=== PATIENT | female | born 1935 | race Caucasian/White ===

== ENCOUNTER 2019-10-28 09:41 | Day surgery (SDC) | payer MEDICARE, BC ==
[~2019-10-28 09:41] MED LIST: ASPI325 PO; CARV3.125 PO; CLOP75 PO; FAMO20 PO; FURO40 PO; LEVSOD50 PO; LISI5 PO; POTCHL10ER PO; ROSU10TA PO
== END 2019-10-28 17:14 | disposition home or self-care (01) ==
LOC: ATC 09:41
DX: M31.6 Other giant cell arteritis (principal); I11.9 Hypertensive heart disease without heart failure; G25.2 Other specified forms of tremor; M10.9 Gout, unspecified; E78.49 Other hyperlipidemia; E03.8 Other specified hypothyroidism; M47.22 Other spondylosis with radiculopathy, cervical region; G44.229 Chronic tension-type headache, not intractable; I25.10 Atherosclerotic heart disease of native coronary artery without angina pectoris; Z87.891 Personal history of nicotine dependence; Z79.899 Other long term (current) drug therapy; Z79.82 Long term (current) use of aspirin
CPT/HCPCS: J2930

== ENCOUNTER 2019-10-30 00:07 | Day surgery (SDC) | payer MEDICARE, BC | END 2019-10-30 14:50 | disposition home or self-care (01) | LOC: ATC 00:07 | DX: M31.6 Other giant cell arteritis (principal); I10 Essential (primary) hypertension; E78.5 Hyperlipidemia, unspecified; E03.9 Hypothyroidism, unspecified; I25.10 Atherosclerotic heart disease of native coronary artery without angina pectoris; M10.9 Gout, unspecified; Z86.73 Personal history of transient ischemic attack (TIA), and cerebral infarction without residual deficits; Z87.891 Personal history of nicotine dependence; Z79.82 Long term (current) use of aspirin; Z79.899 Other long term (current) drug therapy | CPT/HCPCS: 96365; J2930 ==

== ENCOUNTER 2020-02-27 12:05 | Emergency (ER) | payer MEDICARE, BC ==
[~2020-02-27] VITALS: Ht 160 cm; Wt 68.0 kg
[~2020-02-27 12:05] MED LIST changes: -ELIQUIS5 MG PO; -Prednisone20 MG PO
[2020-02-27] MEDS ORDERED: ELIQUIS5 MG PO (12:34)
[2020-02-27] MEDS ORDERED: Prednisone20 MG PO (12:35)
[2020-02-27 12:44] LABS: Hematocrit 32.8 % (33.0-51.0); Hemoglobin 10.6 g/dL (11.5-16.0); Mean Corpuscular HGB 30.4 pg (26.0-34.0); Mean Corpuscular HGB Conc 32.3 g/dL (31.5-36.5); Mean Corpuscular Volume 94 fL (80-100); Mean Platelet Volume 8.9 fL (9.1-12.4); NRBC ABSOLUTE 0.05 K/mm3 (0.00-0.02); NRBC Auto 0.6 /100 WBC (0.0-0.2); Platelet Count 277 K/mm3 (150-400); RDW Coefficient Variation 15.7 % (11.7-14.2); RDW Standard Deviation 54.8 fL (35.1-46.3); Red Blood Cell Count 3.49 M/mm3 (3.80-5.20); White Blood Cell Count 7.83 K/mm3 (4.00-11.30)
[2020-02-27 13:00] LABS: Albumin, Blood 3.3 g/dL (3.4-5.0); Albumin/Globulin Ratio 1.1 (0.8-1.8); Bilirubin, Total 0.8 mg/dL (0.1-1.0); Bun/Creatinine Ratio 16.8 (12.0-20.0); Calcium, Blood 8.3 mg/dL (8.5-10.1); Creatinine, Blood 1.97 mg/dL (0.40-1.00); Globulin, Blood 3.1 g/dL (2.2-4.0); Potassium, Blood 3.4 mmol/L (3.5-5.5); Total Protein, Blood 6.4 g/dL (6.4-8.2); Troponin I 0.045 ng/mL (0.000-0.040)
[2020-02-27 13:08] LABS: BAND PERCENT MAN 18 % (0-8); BASOPHILS PERCENT MAN 0 % (0-2); EOSINOPHILS ABSOLUTE MAN 0.07 K/mm3 (0.00-0.68); EOSINOPHILS PERCENT MAN 1 % (0-6); LYMPHOCYTES % ATYPICAL MANUAL 1 % (0-0); LYMPHOCYTES ABSOLUTE MAN 0.46 K/mm3 (0.84-5.20); LYMPHOCYTES PERCENT MAN 5 % (21-46); MONOCYTES ABSOLUTE MAN 0.31 K/mm3 (0.16-1.47); MONOCYTES PERCENT MAN 4 % (4-13); NEUTROPHILS ABSOLUTE MAN 6.96 K/mm3 (1.96-9.15); SEG NEUTROPHILS PERCENT MAN 71 % (41-73); TOTAL CELLS COUNTED 100
== END 2020-02-27 16:01 | disposition home or self-care (01) ==
LOC: ER 12:05
PROVIDERS: Emergency Medicine
DX: N17.9 Acute kidney failure, unspecified (principal); E86.0 Dehydration; R19.7 Diarrhea, unspecified; I12.9 Hypertensive chronic kidney disease with stage 1 through stage 4 chronic kidney disease, or unspecified chronic kidney disease; N18.9 Chronic kidney disease, unspecified; I25.2 Old myocardial infarction; I25.10 Atherosclerotic heart disease of native coronary artery without angina pectoris; I48.91 Unspecified atrial fibrillation; E03.9 Hypothyroidism, unspecified; E78.5 Hyperlipidemia, unspecified; Z86.73 Personal history of transient ischemic attack (TIA), and cerebral infarction without residual deficits; Z86.718 Personal history of other venous thrombosis and embolism; Z88.5 Allergy status to narcotic agent; Z79.899 Other long term (current) drug therapy; Z79.01 Long term (current) use of anticoagulants; Z79.52 Long term (current) use of systemic steroids
CPT/HCPCS: 36415; 80053; 84484; 85025; 93005; 93010; 99285-25; J7030

== ENCOUNTER → 2020-02-27 | Outpatient (CLI) | payer MEDICARE, BC ==
[~2020-02-27] MED LIST changes: +Aspir 8181 MG PO; +ELIQUIS5 MG PO; +EUTHYROX50 MCG PO; -LEVSOD50 PO; +MULTI VITAMIN1 EACH PO; +PANT40 PO; +PRED20 PO; +Prednisone20 MG PO
[2020-02-27 16:41] LABS: Adenovirus F 40/41 Not Detected (NOT DETECT); Astrovirus Not Detected (NOT DETECT); Campylobacter Sp Not Detected (NOT DETECT); Cryptosporidium Not Detected (NOT DETECT); Cyclospora Cayetanensis Not Detected (NOT DETECT); E. Coli O157 Not Detected (NOT DETECT); Entamoeba Histolytica Not Detected (NOT DETECT); Enteroaggregative E. coli-EAEC Not Detected (NOT DETECT); Enteropathogenic E. coli-EPEC Not Detected (NOT DETECT); Enterotoxigenic E. coli-ETEC Not Detected (NOT DETECT); Giardia Lamblia Not Detected (NOT DETECT); Norovirus GI/GII Not Detected (NOT DETECT); Plesiomonas Shigelloides Not Detected (NOT DETECT); Rotavirus A Not Detected (NOT DETECT); Salmonella Sp Not Detected (NOT DETECT); Sapovirus Not Detected (NOT DETECT); Shiga Toxin-prod E. coli-STEC Not Detected (NOT DETECT); Shigella/Enteroin E. coli-EIEC Not Detected (NOT DETECT); Vibrio Cholerae Not Detected (NOT DETECT); Vibrio Sp Not Detected (NOT DETECT); Yersinia Enterocolitica Not Detected (NOT DETECT)
== END | disposition home or self-care (01) ==
LOC: LAB SHORT 09:58 → LAB 09:58 → LAB FUT 02-16 16:25
PROVIDERS: Family Medicine
DX: A09 Infectious gastroenteritis and colitis, unspecified (principal)
CPT/HCPCS: 0097U

== ENCOUNTER 2020-03-05 01:13 | Inpatient (IN) | payer MEDICARE, BC, OTHER ==
[~2020-03-05] VITALS: Ht 160 cm; Wt 64.5 kg
[~2020-03-05 01:13] MED LIST changes: +ELIQUIS5 MG PO; +Prednisone20 MG PO
[2020-03-05 02:05] LABS: Hematocrit 28.9 % (33.0-51.0); Hemoglobin 9.3 g/dL (11.5-16.0); Mean Corpuscular HGB Conc 32.2 g/dL (31.5-36.5); Mean Corpuscular Volume 93 fL (80-100); Mean Platelet Volume 9.1 fL (9.1-12.4); Platelet Count 203 K/mm3 (150-400); RDW Coefficient Variation 15.6 % (11.7-14.2); RDW Standard Deviation 53.3 fL (35.1-46.3)
[2020-03-05 02:23] LABS: Albumin, Blood 2.6 g/dL (3.4-5.0); Bilirubin, Total 0.7 mg/dL (0.1-1.0); Bun/Creatinine Ratio 22.8 (12.0-20.0); Calcium, Blood 7.8 mg/dL (8.5-10.1); Creatinine, Blood 1.67 mg/dL (0.40-1.00); Globulin, Blood 2.7 g/dL (2.2-4.0); Potassium, Blood 4.1 mmol/L (3.5-5.5); Total Protein, Blood 5.3 g/dL (6.4-8.2); Troponin I 0.026 ng/mL (0.000-0.040)
[2020-03-05 02:42] LABS: BAND PERCENT MAN 1 % (0-8); BASOPHILS PERCENT MAN 0 % (0-2); EOSINOPHILS PERCENT MAN 0 % (0-6); LYMPHOCYTES ABSOLUTE MAN 0.76 K/mm3 (0.84-5.20); LYMPHOCYTES PERCENT MAN 20 % (21-46); MONOCYTES ABSOLUTE MAN 0.03 K/mm3 (0.16-1.47); MONOCYTES PERCENT MAN 1 % (4-13); SEG NEUTROPHILS PERCENT MAN 78 % (41-73); TOTAL CELLS COUNTED 100
[2020-03-05 07:25] LABS: Hematocrit 31.7 % (33.0-51.0); Hemoglobin 10.1 g/dL (11.5-16.0); Mean Corpuscular HGB 30.1 pg (26.0-34.0); Mean Corpuscular HGB Conc 31.9 g/dL (31.5-36.5); Mean Corpuscular Volume 94 fL (80-100); Mean Platelet Volume 9.5 fL (9.1-12.4); Platelet Count 203 K/mm3 (150-400); RDW Coefficient Variation 15.7 % (11.7-14.2); RDW Standard Deviation 54.3 fL (35.1-46.3); Red Blood Cell Count 3.36 M/mm3 (3.80-5.20); White Blood Cell Count 4.34 K/mm3 (4.00-11.30)
[2020-03-05 07:49] LABS: Albumin, Blood 2.7 g/dL (3.4-5.0); Albumin/Globulin Ratio 0.9 (0.8-1.8); Bilirubin, Total 0.9 mg/dL (0.1-1.0); Calcium, Blood 8.2 mg/dL (8.5-10.1); Creatinine, Blood 1.44 mg/dL (0.40-1.00); Globulin, Blood 2.9 g/dL (2.2-4.0); Total Protein, Blood 5.6 g/dL (6.4-8.2)
[2020-03-05 08:02] LABS: BAND PERCENT MAN 2 % (0-8); BASOPHILS PERCENT MAN 0 % (0-2); EOSINOPHILS ABSOLUTE MAN 0.04 K/mm3 (0.00-0.68); EOSINOPHILS PERCENT MAN 1 % (0-6); LYMPHOCYTES ABSOLUTE MAN 0.39 K/mm3 (0.84-5.20); LYMPHOCYTES PERCENT MAN 9 % (21-46); MONOCYTES ABSOLUTE MAN 0.26 K/mm3 (0.16-1.47); MONOCYTES PERCENT MAN 6 % (4-13); NEUTROPHILS ABSOLUTE MAN 3.64 K/mm3 (1.96-9.15); SEG NEUTROPHILS PERCENT MAN 82 % (41-73); TOTAL CELLS COUNTED 100
--- NOTE | 2020-03-05 17:57 | NUR ---
SHIFT SUMMARY PATIENT MEDIATED X1 FOR NAUSEA AND X1 FOR PAIN THIS MORNING. PATIENT REPORTS ABDOMINAL PAIN HAS BEEN FADING ALL DAY. CONSULT WITH DR. ADAN, PATIENT WILL HAVE HYDASCAN IN AM TO DETERMINE IF GALLBLADER REMOVAL IS NECCESSARY. NPO AT MIDNIGHT AND NO PAIN MEDICATION AFTER MIDNIGHT. HOLDING ELEQUIS AT THIS TIME. PATIENT UP SBA TO BR. DAUGHTER AT BEDSIDE. CALL LIGHT IN REACH.
--- NOTE | 2020-03-06 04:14 | NUR ---
SHIFT SUMMARY ASSUMED CARE OF PT AT 1900. PT IS A/OX4, DENIES N/T IN EXTERMIES. HEART SOUNDS REUGLAR, TELE SHOWS SINUS W/ PAC @ 65, DENIES CP. LUNG SOUNDS CLEAR, DENIES SOB. PT IS 1P SBA TO BATHROOM DUE TO CORDS. URINE CLEAR NAD YELLOW. PT HAS NO COMPLAINTS OF PAIN, NEASEA OR VOMITING. PT HAS BEEN NPO SINCE MIDNIGHT AND HAS NO HAD ANY PAIN MEDICATIONS. NO ACUTE EVENTS DURING THE NIGHT. PT SLEPT T/O THE NIGHT. CALL LIGHT IN REACH, BED IN LOWEST POSTION, WILL CONTINUE TO MONITOR UNTIL DAYSHIFT NURSE ARRIVES.
[2020-03-06 05:27] LABS: Hematocrit 26.5 % (33.0-51.0); Hemoglobin 8.6 g/dL (11.5-16.0); Mean Corpuscular HGB 30.3 pg (26.0-34.0); Mean Corpuscular HGB Conc 32.5 g/dL (31.5-36.5); Mean Corpuscular Volume 93 fL (80-100); Mean Platelet Volume 9.4 fL (9.1-12.4); Platelet Count 179 K/mm3 (150-400); RDW Coefficient Variation 15.9 % (11.7-14.2); RDW Standard Deviation 54.5 fL (35.1-46.3); Red Blood Cell Count 2.84 M/mm3 (3.80-5.20); White Blood Cell Count 3.05 K/mm3 (4.00-11.30)
[2020-03-06 05:49] LABS: BAND PERCENT MAN 8 % (0-8); BASOPHILS PERCENT MAN 0 % (0-2); EOSINOPHILS PERCENT MAN 0 % (0-6); LYMPHOCYTES % ATYPICAL MANUAL 1 % (0-0); LYMPHOCYTES ABSOLUTE MAN 0.42 K/mm3 (0.84-5.20); LYMPHOCYTES PERCENT MAN 13 % (21-46); MONOCYTES ABSOLUTE MAN 0.15 K/mm3 (0.16-1.47); MONOCYTES PERCENT MAN 5 % (4-13); NEUTROPHILS ABSOLUTE MAN 2.47 K/mm3 (1.96-9.15); SEG NEUTROPHILS PERCENT MAN 73 % (41-73); TOTAL CELLS COUNTED 100
[2020-03-06 06:00] LABS: Albumin, Blood 2.2 g/dL (3.4-5.0); Albumin/Globulin Ratio 0.8 (0.8-1.8); Bun/Creatinine Ratio 18.4 (12.0-20.0); Calcium, Blood 7.5 mg/dL (8.5-10.1); Creatinine, Blood 1.41 mg/dL (0.40-1.00); Globulin, Blood 2.6 g/dL (2.2-4.0); Potassium, Blood 3.7 mmol/L (3.5-5.5); Total Protein, Blood 4.8 g/dL (6.4-8.2)
--- NOTE | 2020-03-06 15:43 | NUR ---
SHIFT SUMMARY PT IS A/O X 4. SHE HAS NO C/O PAIN AND IS A SBA WITH A FWW TO THE TOILET. SHE WENT FOR HER HIDASCAN THIS MORNING AND IS AWAITING THE RESULTS. SHE WAS ADVANCED TO A CLEAR LIQUID DIET AND IS TOLERATING IT WELL. HER SON HAS BEEN AT THE BEDSIDE ALL DAY AND IS VERY INVOLVED IN HER CARE. THE PT IS ABLE TO MAKE HER NEEDS KNOWN AND CALLS FOR HELP WHEN NEEDED. SHE HAS HER CALL LIGHT IN REACH.
--- NOTE | 2020-03-07 03:59 | NUR ---
PARTS CHASER SUMMARY PT A/O X4. DENIES PAIN, NAUSEA, DIZZINESS. VSS. CALLS APPROPRIATELY. NO ACUTE CHANGES.
--- NOTE | 2020-03-07 08:34 | NUR ---
03/07/20 0834 Zach Benson PATIENT ON SCHEDULED ANTIBIOTICS
--- NOTE | 2020-03-08 04:55 | NUR ---
SERGING MACHINE OPERATOR SUMMARY PT A/O X4. SLEPT GREAT TONIGHT. DENIES PAIN, NAUSEA. PT SAYS DIZZINESS HAS IMPROVED. VSS. STERI STRIPS ON SURGICAL SITE ON ABD IS CLEAN AND INTACT. NO ACUTE CHANGES. CALL APPROPRIATELY.
[2020-03-08 05:13] LABS: Hematocrit 24.8 % (33.0-51.0); Hemoglobin 7.9 g/dL (11.5-16.0); Mean Corpuscular HGB Conc 31.9 g/dL (31.5-36.5); Mean Corpuscular Volume 94 fL (80-100); Mean Platelet Volume 9.6 fL (9.1-12.4); Platelet Count 173 K/mm3 (150-400); RDW Coefficient Variation 15.7 % (11.7-14.2); RDW Standard Deviation 54.2 fL (35.1-46.3); Red Blood Cell Count 2.63 M/mm3 (3.80-5.20)
[2020-03-08 05:22] LABS: BASOPHILS PERCENT AUTO 0 % (0-2); EOSINOPHILS ABSOLUTE AUTO 0.01 K/mm3 (0.00-0.68); EOSINOPHILS PERCENT AUTO 2 % (0-6); IMMATURE GRAN ABSOLUTE AUTO 0.01 K/mm3 (0.00-0.10); IMMATURE GRAN PERCENT AUTO 2 % (0-1); LYMPHOCYTES ABSOLUTE AUTO 0.28 K/mm3 (0.84-5.20); LYMPHOCYTES PERCENT AUTO 44 % (21-46); MONOCYTES ABSOLUTE AUTO 0.05 K/mm3 (0.16-1.47); MONOCYTES PERCENT AUTO 8 % (4-13); NEUTROPHILS ABSOLUTE AUTO 0.28 K/mm3 (1.96-9.15); NEUTROPHILS PERCENT AUTO 45 % (41-73); White Blood Cell Count 0.63 K/mm3 (4.00-11.30)
[2020-03-08 05:52] LABS: Anion Gap 8 mmol/L (6-16); Blood Urea Nitrogen 16 mg/dL (8-24); Bun/Creatinine Ratio 15.4 (12.0-20.0); CO2, Blood 23 mmol/L (21-32); Calcium, Blood 7.6 mg/dL (8.5-10.1); Chloride, Blood 109 mmol/L (98-108); Creatinine, Blood 1.04 mg/dL (0.40-1.00); Glomerular Filtration Rate 54 (60-); Glucose, Blood 113 mg/dL (70-99); Phosphorus, Blood 3.5 mg/dL (2.5-4.9); Potassium, Blood 3.4 mmol/L (3.5-5.5); Sodium, Blood 140 mmol/L (136-145)
[2020-03-08 08:12] LABS: Hematocrit 24.7 % (33.0-51.0); Hemoglobin 7.9 g/dL (11.5-16.0); Mean Corpuscular HGB 29.9 pg (26.0-34.0); Mean Corpuscular Volume 94 fL (80-100); Mean Platelet Volume 9.4 fL (9.1-12.4); Platelet Count 174 K/mm3 (150-400); RDW Coefficient Variation 15.7 % (11.7-14.2); RDW Standard Deviation 53.8 fL (35.1-46.3); Red Blood Cell Count 2.64 M/mm3 (3.80-5.20)
[2020-03-08 08:15] LABS: White Blood Cell Count 0.64 K/mm3 (4.00-11.30)
[2020-03-08 08:43] LABS: BASOPHILS PERCENT MAN 0 % (0-2); EOSINOPHILS ABSOLUTE MAN 0.01 K/mm3 (0.00-0.68); EOSINOPHILS PERCENT MAN 2 % (0-6); LYMPHOCYTES ABSOLUTE MAN 0.33 K/mm3 (0.84-5.20); LYMPHOCYTES PERCENT MAN 52 % (21-46); MONOCYTES ABSOLUTE MAN 0.02 K/mm3 (0.16-1.47); MONOCYTES PERCENT MAN 4 % (4-13); NEUTROPHILS ABSOLUTE MAN 0.26 K/mm3 (1.96-9.15); SEG NEUTROPHILS PERCENT MAN 42 % (41-73); TOTAL CELLS COUNTED 50
[2020-03-08 11:12] LABS: Percent Saturation 5.6 % (15.0-50.0)
--- NOTE | 2020-03-08 15:52 | NUR ---
SUMMARY: NO ACUTE CHANGE TODAY. VSS, A/O. SUGICAL SITE WNL. PT REPORTS MINIMAL PAIN, MANAGED WITH TYLENOL. PT WBC'S CONTINUE TO BE LOW, MD AWARE. PT IN NEUTROPENIC PRECAUTIONS. PLAN IS TO CONSULT HEMATOLOGY, AND PT TO SEE REGULATORY ANALYST TOMORROW. WILL CTM AND REPORT TO NOC RN
[2020-03-08 16:02] LABS: Hematocrit 27.8 % (33.0-51.0); Hemoglobin 8.9 g/dL (11.5-16.0); Mean Corpuscular Volume 94 fL (80-100); Mean Platelet Volume 9.7 fL (9.1-12.4); Platelet Count 227 K/mm3 (150-400); RDW Coefficient Variation 15.7 % (11.7-14.2); RDW Standard Deviation 54.2 fL (35.1-46.3); Red Blood Cell Count 2.97 M/mm3 (3.80-5.20)
[2020-03-08 16:05] LABS: BASOPHILS PERCENT AUTO 0 % (0-2); EOSINOPHILS PERCENT AUTO 0 % (0-6); IMMATURE GRAN PERCENT AUTO 0 % (0-1); LYMPHOCYTES ABSOLUTE AUTO 0.17 K/mm3 (0.84-5.20); LYMPHOCYTES PERCENT AUTO 40 % (21-46); MONOCYTES ABSOLUTE AUTO 0.05 K/mm3 (0.16-1.47); MONOCYTES PERCENT AUTO 12 % (4-13); NEUTROPHILS ABSOLUTE AUTO 0.21 K/mm3 (1.96-9.15); NEUTROPHILS PERCENT AUTO 49 % (41-73)
[2020-03-08 16:06] LABS: White Blood Cell Count 0.43 K/mm3 (4.00-11.30)
--- NOTE | 2020-03-08 16:37 | NUR ---
PT REPORTS MORE SWELLING IN LLE AT ANKLE AFTER SHOWER. UPON ASSESSMENT, CAP REFILL WNL, PEDAL PULSE +2 LEG IS WARM TO THE TOUCH AND PT DENIES N/T. DR. YBARRA NOTIFIED OF PT CONCERN OF SWELLING. SEE NEW ORDER, WILL CTM.
--- NOTE | 2020-03-09 03:19 | NUR ---
PT A/O X4. SHE IS LETHARGIC. PALE IN APPERANCE. FEVER OF 101.O. SHE'S HAD CHILLS OVER NIGHT. FEELING COLD AND HOT. ROOM TEMP LOWERED. TYLENOL GIVEN. ON TELE BEEN RANGING FROM SR TO SINUS TACH. WILL CONTINUE TO MONITOR.
--- NOTE | 2020-03-09 05:09 | NUR ---
night time nanny summary at 0415 pt had 7 beats of v-tach. i checked on pt. pt states she is feeling better after tylenol was given. temperature came down to normal. at 445 i got another call from tele as pt had runs of v-tach with here and there after the episode at 0415. vitals taken. bp appears softer than normal. she states she is no longer having chills. hospitalist jazmyne notified. order for magnesium lab to be drawn this morning which is already included in today's CMP. will continue to monitor.
[2020-03-09 05:31] LABS: Hematocrit 28.1 % (33.0-51.0); Hemoglobin 8.9 g/dL (11.5-16.0); Mean Corpuscular HGB 29.8 pg (26.0-34.0); Mean Corpuscular HGB Conc 31.7 g/dL (31.5-36.5); Mean Corpuscular Volume 94 fL (80-100); Platelet Count 196 K/mm3 (150-400); RDW Coefficient Variation 15.7 % (11.7-14.2); RDW Standard Deviation 54.1 fL (35.1-46.3); Red Blood Cell Count 2.99 M/mm3 (3.80-5.20)
[2020-03-09 05:35] LABS: White Blood Cell Count 0.38 K/mm3 (4.00-11.30)
[2020-03-09 06:00] LABS: Albumin, Blood 2.2 g/dL (3.4-5.0); Albumin/Globulin Ratio 0.7 (0.8-1.8); BAND PERCENT MAN 2 % (0-8); BASOPHILS PERCENT MAN 0 % (0-2); Bilirubin, Total 0.6 mg/dL (0.1-1.0); Bun/Creatinine Ratio 14.3 (12.0-20.0); Calcium, Blood 8.1 mg/dL (8.5-10.1); Creatinine, Blood 1.19 mg/dL (0.40-1.00); EOSINOPHILS PERCENT MAN 2 % (0-6); Globulin, Blood 3.1 g/dL (2.2-4.0); LYMPHOCYTES PERCENT MAN 54 % (21-46); MONOCYTES ABSOLUTE MAN 0.09 K/mm3 (0.16-1.47); MONOCYTES PERCENT MAN 26 % (4-13); NEUTROPHILS ABSOLUTE MAN 0.06 K/mm3 (1.96-9.15); Potassium, Blood 3.4 mmol/L (3.5-5.5); SEG NEUTROPHILS PERCENT MAN 16 % (41-73); TOTAL CELLS COUNTED 50; Total Protein, Blood 5.3 g/dL (6.4-8.2)
--- NOTE | 2020-03-09 08:45 | NUR ---
PT TRANSFERRED TO ROOM ICU 1 WITH RN PRESENT TO ACCEPT PT.
--- NOTE | 2020-03-09 10:05 | NUR ---
PT ADMITTED TO ICU-1 ON PCU STAUTS VIA BED. PT IS A/O, WITH NOTED MILD EXERTIONAL SOB, SATS 97, AND ON RA. ABD. LAP. JOHN SITES ARE D/I WITH GOOD BOWEL TONES. NO N/V. PT DENIE THE NEED TO VOID. ON IV SITE IN RAC AND WILL ASSESS. VS NOTED AND WILL GIVE IV LOPRESSOR
[2020-03-09 14:50] LABS: Performing Lab SYMBIODX; Test Name FLOW BLOOD
--- NOTE | 2020-03-09 14:56 | NUR ---
PT USING I.S. TO ABOUT 750 ML LEVEL. VS IMPROVING NOTED. SON IS IN ROOM. PT CURRENTLY SLEEPING WITH HR 70'S.
--- NOTE | 2020-03-09 17:17 | NUR ---
PT AWAKENED FROM LONG NAP AND UP TO BSC TO VOID. PT URINE IS SIMRAN SL CLOUDY. VS NOTED. SR CONTINUES W/O ECTOPY. NS REMAINS AT 100 ML MAINTANCE RATE WITH IVPB ABX. PT CONT. TO USE I.S. AT 500-750 ML. PT REMAINS A/O.
--- NOTE | 2020-03-09 19:52 | NUR ---
ASSUMPTION OF CARE PT AWAKE IN BED, ORIENTED TO SELF, EVENT, DATE, LOCATION AND FOLLOWING DIRECTIONS, DENIES PAIN/DISCOMFORT. O2 SATURATIONS> 95% ON RA, MONITOR SHOWS SINUS RHYTHM WITH HR 60'S, BP SOFT BUT MAPS> 65, NS INF @ 100ml/hr. MILD DISCOLORATION AND PEELING OF SKIN TO LLE, PT REPORTS HX OF DVT, WAS TREATED AND SITE IS MUCH IMPROVED. BT HYPERACTIVE, MILD TENDERNESS WITH PALPATION, REPORT FROM PREVIOUS RN OF BM TODAY, STERI-STRIPS NOTED TO SURGICAL SITE, C/D/I. PT DENIES ANY ISSUES AT THIS TIME. CALL LIGHT WITHIN REACH, PT INSTRUCTED ON USE.
--- NOTE | 2020-03-10 00:05 | NUR ---
BEDSIDE REPORT GIVEN TO JORGE RN, NO ACUTE CHANGES, PT AROUSES TO VERBAL STIMULI, DENIES ANY NEEDS AT THIS TIME. CALL LIGHT WITHIN REACH.
--- NOTE | 2020-03-10 00:18 | NUR ---
ASSUMED CARE FROM BHAKTI QUINTANA
[2020-03-10 03:47] LABS: Hematocrit 25.6 % (33.0-51.0); Hemoglobin 7.9 g/dL (11.5-16.0); Mean Corpuscular HGB 29.4 pg (26.0-34.0); Mean Corpuscular HGB Conc 30.9 g/dL (31.5-36.5); Mean Corpuscular Volume 95 fL (80-100); Mean Platelet Volume 9.8 fL (9.1-12.4); Platelet Count 163 K/mm3 (150-400); RDW Standard Deviation 55.8 fL (35.1-46.3); Red Blood Cell Count 2.69 M/mm3 (3.80-5.20)
[2020-03-10 03:48] LABS: BASOPHILS PERCENT AUTO 0 % (0-2); EOSINOPHILS ABSOLUTE AUTO 0.02 K/mm3 (0.00-0.68); EOSINOPHILS PERCENT AUTO 4 % (0-6); IMMATURE GRAN ABSOLUTE AUTO 0.02 K/mm3 (0.00-0.10); IMMATURE GRAN PERCENT AUTO 4 % (0-1); LYMPHOCYTES ABSOLUTE AUTO 0.34 K/mm3 (0.84-5.20); LYMPHOCYTES PERCENT AUTO 67 % (21-46); MONOCYTES PERCENT AUTO 20 % (4-13); NEUTROPHILS ABSOLUTE AUTO 0.03 K/mm3 (1.96-9.15); NEUTROPHILS PERCENT AUTO 6 % (41-73)
[2020-03-10 03:50] LABS: White Blood Cell Count 0.51 K/mm3 (4.00-11.30)
[2020-03-10 04:09] LABS: Albumin, Blood 1.7 g/dL (3.4-5.0); Albumin/Globulin Ratio 0.6 (0.8-1.8); Bilirubin, Total 0.5 mg/dL (0.1-1.0); Bun/Creatinine Ratio 17.3 (12.0-20.0); Calcium, Blood 7.6 mg/dL (8.5-10.1); Creatinine, Blood 1.27 mg/dL (0.40-1.00); Globulin, Blood 2.8 g/dL (2.2-4.0); Magnesium, Blood 2.4 mg/dL (1.6-2.4); Potassium, Blood 4.2 mmol/L (3.5-5.5); Total Protein, Blood 4.5 g/dL (6.4-8.2)
--- NOTE | 2020-03-10 06:31 | NUR ---
SHIFT SUMMARY: NO ACUTE CHANGES SINCE I ASSUMED CARE AROUND MIDNIGHT. VSS. PT DID NOT HAVE ANY COMPLAINTS FOR ME. SHE IS A STANDBY ASSIST. COMPLAINS OF SOME WEAKNESS. PIV IN LAC.
--- NOTE | 2020-03-10 08:00 | NUR ---
INITIAL ASSESSMENT PATIENT ALERT AND ORIENTED X 4, AFEBRILE. PATIENT DENIES PAIN AT THIS TIME. PATIENT WEAK. 1 PERSON ASSIST WITH FWW. PATIENT SATTING 90% AND GREATER ON RA. LUNGS CLEAR IN UPPER LOBES, DIMINISHED IN LOWER LOBES. PATIENT STATES SHE OCCASIONALLY COUGHS AT HOME AND HAS THICK SPUTUM BUT THAT SHE DOESN'T KNOW WHAT COLOR BECAUSE SHE DOESN'T LOOK. SON HELPING PATIENT WITH INCENTIVE SPIROMETER. PATIENT IN SB, HR IN THE 50S. BP STABLE. 1+ EDEMA NOTED IN BLES. ABDOMEN MILDLY DISTENDED, SOFT, WITH HYPERACTIVE BS NOTED. PATIENT HAS SURGICAL INCISIONS TO ABDOMEN. WNL. PATIENT USING BSC WITH ASSISTANCE. SCATTERED BRUISING NOTED. LLE PEELING/ DISCOLORED. SURGICAL INCISIONS TO ABDOMEN FROM JOHN. NS INFUSING AT 100 MLS/ HOUR. BED LOW, CALL LIGHT IN REACH. SON AT BEDSIDE. WILL CONTINUE TO MONITOR PATIENT FREQUENTLY THROUGHOUT SHIFT.
--- NOTE | 2020-03-10 12:12 | NUR ---
PATIENT RESTING QUIETLY IN BED. AFEBRILE. DENIES PAIN. PATIENT IN SB TO SR. HR MOSTLY IN THE 50S. HR UP TO 80S WITH ACTIVITY. BP STABLE. ZOSYN STARTED. SON IN ROOM. NO OTHER ACUTE CHANGES TO NOTE ON AT THIS TIME. WILL CONTINUE TO MONITOR.
[2020-03-10 16:40] LABS: Source, Urine Clean Catch
[2020-03-10 16:42] LABS: Appearance, Urine Hazy (Clear); Bilirubin, Urine Neg (Neg); Blood, Urine Neg (Neg); Color, Urine Yellow (P-Yellow); Glucose Qualitative, Urine Neg (Neg); Ketones, Urine 1+ (Neg); Leukocyte Esterase, Urine Neg (Neg); Nitrite, Urine Neg (Neg); Protein, Urine 2+ (Neg); Specific Gravity, Urine 1.015 (1.003-1.022); Urobilinogen, Urine NORM (Normal)
--- NOTE | 2020-03-10 16:51 | NUR ---
SHIFT SUMMARY PATIENT REMAINED ALERT AND ORIENTED, AFEBRILE. PATIENT HAD NO COMPLAINTS OF PAIN. PATIENT WEAK; 1 PERSON ASSIST WITH FWW. PHYSICAL THERAPY ORDERED TODAY. PATIENT REMAINED SATTING 90% AND GREATER ON RA. PATIENT REMAINED IN SB TO SR, HR 50S TO 80S. BP STABLE. GI AND WNL. NO CHANGE TO SKIN. PATIENT SHIFTING OWN HIPS IN BED AND SON IS ENCOURAGING/ ASSISTING. NS INFUSING AT 30 MLS/ HOUR. BED LOW, CALL LIGHT IN REACH. NO COMPLAINTS AT THIS TIME. PATIENT WILL BE TRANSFERRING TO MEDICAL FLOOR SHORTLY.
[2020-03-10 17:04] LABS: Uric Acid Crystals Mod /hpf
[2020-03-10 17:07] LABS: Bacteria Few /hpf; Calcium Oxalate Crystals Many /hpf; Red Blood Cells, Urine 0-2 /hpf (0-2); Squamous Epithelial Cells Few /hpf (Few); White Blood Cells, Urine 0-2 /hpf (0-5)
--- NOTE | 2020-03-10 17:10 | NUR ---
PATIENT BEING TRANSFERRED AT THIS TIME TO MEDICAL FLOOR, ROOM 306, BY CAREER SERVICES ASSISTANT. SON AT SIDE. ALL BELONGINGS TAKEN WITH PATIENT.
--- NOTE | 2020-03-10 17:32 | NUR ---
Shift Summary A/Ox4, pleasant and cooperative since arrival. Received report from Delmis RN-ICU. Patient arrived to unit via w/c and son (Rafat) at bedside. Transfer with 1P assist c FWW, RA, denies pain, nausea, diarrhea, sob. Weakness in BLE per patient state. NS @ 30mLs/hr. Oriented to call light, bed in lowest position, will continue to monitor.
--- NOTE | 2020-03-10 18:54 | NUR ---
TELEMETRY CALLED TO ASKED DR. YBARRA IF SHE WANTED TELEMETRY ORDER OVERNIGHT. RECEIVED TELEPHONE ORDER FOR TELEMETRY OVERNIGHT.
[2020-03-11 05:15] LABS: Hematocrit 25.1 % (33.0-51.0); Hemoglobin 7.7 g/dL (11.5-16.0); Mean Corpuscular HGB 29.5 pg (26.0-34.0); Mean Corpuscular HGB Conc 30.7 g/dL (31.5-36.5); Mean Corpuscular Volume 96 fL (80-100); Mean Platelet Volume 9.6 fL (9.1-12.4); Platelet Count 158 K/mm3 (150-400); RDW Coefficient Variation 16.2 % (11.7-14.2); RDW Standard Deviation 57.6 fL (35.1-46.3); Red Blood Cell Count 2.61 M/mm3 (3.80-5.20)
[2020-03-11 05:34] LABS: Albumin, Blood 1.8 g/dL (3.4-5.0); Anion Gap 7 mmol/L (6-16); Blood Urea Nitrogen 18 mg/dL (8-24); Bun/Creatinine Ratio 16.2 (12.0-20.0); CO2, Blood 21 mmol/L (21-32); Calcium, Blood 7.8 mg/dL (8.5-10.1); Chloride, Blood 114 mmol/L (98-108); Creatinine, Blood 1.11 mg/dL (0.40-1.00); Glomerular Filtration Rate 50 (60-); Glucose, Blood 75 mg/dL (70-99); Phosphorus, Blood 2.4 mg/dL (2.5-4.9); Potassium, Blood 4.1 mmol/L (3.5-5.5); Sodium, Blood 142 mmol/L (136-145)
--- NOTE | 2020-03-11 06:30 | NUR ---
SUMMARY: A/OX4, CALLS APPROPRIATELY AND SPECIFIES NEEDS. SHE'S DENIED PAIN, NAUSEA AND ALL OTHER COMPLAINTS. IV ABX RECIEVED FOR NEUTROPENIA. CRITICAL WBC'S PERSIST, NOW DOWN TO 0.40 FROM 0.51 W/NEUTROPENIC PRECAUTIONS IN PLACE. GRANIX COMMENCED BY DR. LEWIS. PT REMAINS ON TELEMETRY IN NSR AT 70'S-80'S BPM. PT HAS GENERAL ANASARCA AND DEPENDENT EDEMA THAT BECAME WORSE THIS SHIFT. SHE ALSO C/O SLIGHT DEVELOPMENT OF SOB W/VERY FINE CRACKLES TO BASES. ALERTED AND IVF STOPPED. KIDNEY FUNCTION NOTED TO BE IMPROVING PER AM LABS. SHE'S 1P ASSIST W/FWW TO TOILET TO VOID, NO BM THIS SHIFT. PT USING I/S AT BEDSIDE INSTRUCTED. VSS/AFEBRILE, NO ACUTE CHANGES. WCTM AND REPORT TO DAY RN.
[2020-03-11 06:34] LABS: BASOPHILS PERCENT MAN 0 % (0-2); EOSINOPHILS ABSOLUTE MAN 0.04 K/mm3 (0.00-0.68); EOSINOPHILS PERCENT MAN 12 % (0-6); LYMPHOCYTES ABSOLUTE MAN 0.27 K/mm3 (0.84-5.20); LYMPHOCYTES PERCENT MAN 68 % (21-46); MONOCYTES ABSOLUTE MAN 0.03 K/mm3 (0.16-1.47); MONOCYTES PERCENT MAN 8 % (4-13); NEUTROPHILS ABSOLUTE MAN 0.04 K/mm3 (1.96-9.15); SEG NEUTROPHILS PERCENT MAN 12 % (41-73); TOTAL CELLS COUNTED 25
[2020-03-11 11:45] LABS: International Normalized Ratio 1.07; Prothrombin Time Results 11.4 Sec (9.7-11.5)
--- NOTE | 2020-03-11 19:05 | NUR ---
SHIFT SUMMARY: NO ACUTE EVENTS THIS SHIFT. NO EVENTS ON TELEMETRY. LAP INCISIONS ON ABD CD&I, APPROX WITH STERI STRIPS. DENIES PAIN. UP TO BR WITH FWW AND SBA. AFEBRILE DURING THE DAY. GAVE HAND OUT ON BONE MARROW BIOPSY PLANNED FOR TOMORROW MORNING, DISCUSSED WITH PT AND HER DAUGHTER. WORKED WITH PHYS THERAPY.
--- NOTE | 2020-03-11 20:00 | NUR ---
SHIFT SUMMARY: NO ACUTE EVENTS. NO EVENTS ON TELEMETRY. COMPLETED PD AT ~ 1330 TODAY. TRANSFUSED ONE UNIT PRBC'S, TOLERATED WELL. C/O BACK PAIN; MEDICATED PER EMAR, DOES NOT GET COMPLETE RELIEF. WENT FOR TAGGED RBC STUDY IN NUC MED, ONLY ABLE TO TOLERATE ABOUT 20 MINUTES OF TEST. HAD CHEST CT SCAN. TOLERATED FIRST DOSE OF CEFTAROLINE WITH NO SIDE EFFECTS. C/O CONSTIPATION; BOWEL MEDS GIVEN, WILL CONTINUE TO MONITOR.
[2020-03-12 05:16] LABS: Hematocrit 23.9 % (33.0-51.0); Hemoglobin 7.5 g/dL (11.5-16.0); Mean Corpuscular HGB 29.8 pg (26.0-34.0); Mean Corpuscular HGB Conc 31.4 g/dL (31.5-36.5); Mean Corpuscular Volume 95 fL (80-100); Platelet Count 180 K/mm3 (150-400); RDW Coefficient Variation 16.3 % (11.7-14.2); RDW Standard Deviation 57.6 fL (35.1-46.3); Red Blood Cell Count 2.52 M/mm3 (3.80-5.20)
[2020-03-12 05:20] LABS: BASOPHILS PERCENT AUTO 0 % (0-2); EOSINOPHILS ABSOLUTE AUTO 0.02 K/mm3 (0.00-0.68); EOSINOPHILS PERCENT AUTO 4 % (0-6); IMMATURE GRAN PERCENT AUTO 0 % (0-1); LYMPHOCYTES ABSOLUTE AUTO 0.37 K/mm3 (0.84-5.20); LYMPHOCYTES PERCENT AUTO 71 % (21-46); MONOCYTES ABSOLUTE AUTO 0.09 K/mm3 (0.16-1.47); MONOCYTES PERCENT AUTO 17 % (4-13); NEUTROPHILS ABSOLUTE AUTO 0.04 K/mm3 (1.96-9.15); NEUTROPHILS PERCENT AUTO 8 % (41-73)
[2020-03-12 05:21] LABS: White Blood Cell Count 0.52 K/mm3 (4.00-11.30)
[2020-03-12 05:35] LABS: Bun/Creatinine Ratio 13.3 (12.0-20.0); Calcium, Blood 7.9 mg/dL (8.5-10.1); Creatinine, Blood 1.05 mg/dL (0.40-1.00)
--- NOTE | 2020-03-12 07:28 | NUR ---
SHIFT SUMMARY PATIENT ALERT AND ORIENTED. HAD NO COMPLAINTS OF PAIN AND WAS ABLE TO SLEEP FAIRLY WELL OVERNIGHT. PATIENTS ARMS WERE RESTING ON PILLOWS OVERNIGHT AND THE DEPENDENT EDEMA HAS DECREASED. NEW IV PLACED IN RIGHT FOREARM FOR A HEPARIN DRIP WHICH HAS NOW BEEN DISCONTINUED. BOTH IVS PATENT AND FLUSHED. BED IN LOWEST POSITION WITH WHEELS LOCKED. CALL LIGHT WITHIN REACH. REPORT GIVEN TO ONCOMING RN.
[2020-03-12 14:17] LABS: Performing Lab SYMBIODX; Test Name FLOW BONE MARRO
[2020-03-12 14:24] LABS: Performing Lab SYMBIODX; Test Name CREST CORE BX
[2020-03-12 15:31] LABS: Result SEE LABOUT
--- NOTE | 2020-03-12 19:04 | NUR ---
SHIFT SUMMARY: NO ACUTE EVENTS THIS SHIFT. HAD BM BIOPSY THIS AFTERNOON, RESULTS PENDING. NO EVENTS ON TELEMETRY. WORKED WITH PHYSICAL THERAPY, IS MOBILIZING WELL. DENIES PAIN, NAUSEA. TOLERATING DIET BUT APPETITE IS POOR. PLAN IS POSSIBLE D/C HOME TOMORROW.
--- NOTE | 2020-03-13 06:18 | NUR ---
SHIFT SUMMARY PATIENT ALERT AND ORIENTED. HAD NO COMPLAINTS OF PAIN DUE TO BONE MARROW BIOPSY. SLEPT WELL ALL NIGHT. IV PATENT AND FLUSHED. BED IN LOWEST POSITION WITH WHEELS LOCKED. CALL LIGHT WITHIN REACH. REPORT GIVEN TO ONCOMING RN.
[2020-03-13 06:21] LABS: Hematocrit 23.8 % (33.0-51.0); Hemoglobin 7.3 g/dL (11.5-16.0); Mean Corpuscular HGB 29.1 pg (26.0-34.0); Mean Corpuscular HGB Conc 30.7 g/dL (31.5-36.5); Mean Corpuscular Volume 95 fL (80-100); Platelet Count 184 K/mm3 (150-400); RDW Coefficient Variation 16.1 % (11.7-14.2); RDW Standard Deviation 55.9 fL (35.1-46.3); Red Blood Cell Count 2.51 M/mm3 (3.80-5.20)
[2020-03-13 06:23] LABS: White Blood Cell Count 0.41 K/mm3 (4.00-11.30)
[2020-03-13 06:33] LABS: Albumin, Blood 1.8 g/dL (3.4-5.0); Anion Gap 5 mmol/L (6-16); Blood Urea Nitrogen 11 mg/dL (8-24); Bun/Creatinine Ratio 12.1 (12.0-20.0); CO2, Blood 25 mmol/L (21-32); Calcium, Blood 7.7 mg/dL (8.5-10.1); Chloride, Blood 112 mmol/L (98-108); Creatinine, Blood 0.91 mg/dL (0.40-1.00); Glomerular Filtration Rate >60 (60-); Glucose, Blood 95 mg/dL (70-99); Phosphorus, Blood 2.9 mg/dL (2.5-4.9); Potassium, Blood 3.8 mmol/L (3.5-5.5); Sodium, Blood 142 mmol/L (136-145)
[2020-03-13 06:47] LABS: BASOPHILS PERCENT MAN 0 % (0-2); EOSINOPHILS PERCENT MAN 0 % (0-6); LYMPHOCYTES ABSOLUTE MAN 0.27 K/mm3 (0.84-5.20); LYMPHOCYTES PERCENT MAN 68 % (21-46); MONOCYTES ABSOLUTE MAN 0.06 K/mm3 (0.16-1.47); MONOCYTES PERCENT MAN 16 % (4-13); NEUTROPHILS ABSOLUTE MAN 0.06 K/mm3 (1.96-9.15); SEG NEUTROPHILS PERCENT MAN 16 % (41-73); TOTAL CELLS COUNTED 25
--- NOTE | 2020-03-13 10:47 | NUR ---
SHIFT ASSESSMENT: LISTED AT 0000, SHOULD HAVE BEEN LISTED AT 0900.
[2020-03-13] MEDS ORDERED: AMOCLA500 PO (10:53)
[2020-03-13] MEDS ORDERED: METR500 PO (10:53)
--- NOTE | 2020-03-13 11:02 | NUR ---
PCP FOLLOW UP APPT: PT AND FAMILY REQUESTED THAT THIS RN NOT MAKE THEIR FOLLOW UP APPT WITH DR. LARA, THEY WOULD LIKE TO DO IT THEMSELVES.
--- NOTE | 2020-03-13 11:51 | NUR ---
DISCHARGE REVIEWD WITH PT AND SON IN ROOM. THEY VERBALIZED UNDERSTANDING MEDS AND INST. IV PULLED INTACT. TELE REMOVED AND RETURNED. PT WHEELED TO DOOR AT 1150 BY ESCORT.
== END 2020-03-13 12:16 | disposition home or self-care (01) | DRG 418 ==
LOC: ER 01:13 → MEDS 04:52 → ICUE 03-09 07:54 → MEDS 03-10 17:17
PROVIDERS: Emergency Medicine; Internal Medicine; Internal Medicine Hematology & Oncology; Surgery; ADMIT Internal Medicine
PROC: 0FT44ZZ Resection of Gallbladder, Percutaneous Endoscopic Approach (ICD-10-PCS; principal; 2020-03-07 07:00)
PROC: 07DR3ZX Extraction of Iliac Bone Marrow, Percutaneous Approach, Diagnostic (ICD-10-PCS; 2020-03-12)
DX: K80.00 Calculus of gallbladder with acute cholecystitis without obstruction (principal); I13.0 Hypertensive heart and chronic kidney disease with heart failure and stage 1 through stage 4 chronic kidney disease, or unspecified chronic kidney disease; I50.32 Chronic diastolic (congestive) heart failure; N17.9 Acute kidney failure, unspecified; D70.9 Neutropenia, unspecified; N18.3 Chronic kidney disease, stage 3 (moderate); D63.8 Anemia in other chronic diseases classified elsewhere; E03.9 Hypothyroidism, unspecified; E78.5 Hyperlipidemia, unspecified; E87.6 Hypokalemia; I25.10 Atherosclerotic heart disease of native coronary artery without angina pectoris; I48.91 Unspecified atrial fibrillation; M31.6 Other giant cell arteritis; D50.9 Iron deficiency anemia, unspecified; Z86.718 Personal history of other venous thrombosis and embolism; Z86.74 Personal history of sudden cardiac arrest; Z95.5 Presence of coronary angioplasty implant and graft
CPT/HCPCS: 36415; 71045; 71250; 74176; 76705; 78226; 80048; 80053; 80069; 81001; 82607; 82728; 82746; 83540; 83550; 83605; 83690; 83735; 84100; 84132; 84443; 84484; 85007; 85025; 85027; 85610; 85730; 86141; 87040; 88184; 88185; 88304; 93005; 93010; 93971; 96361; 96365; 96375; 96376; 97110; 97116; 97162; 99285-25; A9270; A9270-GY; A9537; J0295; J1170; J1447; J1644; J1650; J1720; J2370; J2405; J2543; J2704; J2765; J3010; J3475; J7030; J7050; J7512; Q5110; U0002

== ENCOUNTER 2020-03-15 08:08 | Inpatient (IN) | payer MEDICARE, BC, OTHER ==
[~2020-03-15] VITALS: Ht 160 cm; Wt 72.8 kg
[~2020-03-15 08:08] MED LIST changes: +AMOCLA500 PO; +METR500 PO
[2020-03-15 08:42] LABS: Hematocrit 25.5 % (33.0-51.0); Hemoglobin 7.9 g/dL (11.5-16.0); Mean Corpuscular HGB 29.2 pg (26.0-34.0); Mean Corpuscular Volume 94 fL (80-100); Mean Platelet Volume 9.8 fL (9.1-12.4); NRBC ABSOLUTE 0.04 K/mm3 (0.00-0.02); NRBC Auto 5.2 /100 WBC (0.0-0.2); Platelet Count 270 K/mm3 (150-400); RDW Coefficient Variation 16.3 % (11.7-14.2); RDW Standard Deviation 55.8 fL (35.1-46.3); Red Blood Cell Count 2.71 M/mm3 (3.80-5.20)
[2020-03-15 08:45] LABS: White Blood Cell Count 0.77 K/mm3 (4.00-11.30)
[2020-03-15 09:02] LABS: Alanine Aminotransfer (ALT/SGP 23 U/L (12-78); Albumin, Blood 1.9 g/dL (3.4-5.0); Albumin/Globulin Ratio 0.6 (0.8-1.8); Alk Phos 146 U/L (50-136); Anion Gap 7 mmol/L (6-16); Aspartate Aminotrans (AST/SGOT 11 U/L (12-37); Bilirubin, Total 0.5 mg/dL (0.1-1.0); Blood Urea Nitrogen 9 mg/dL (8-24); Bun/Creatinine Ratio 9.6 (12.0-20.0); CO2, Blood 26 mmol/L (21-32); Chloride, Blood 110 mmol/L (98-108); Creatinine, Blood 0.94 mg/dL (0.40-1.00); Globulin, Blood 3.3 g/dL (2.2-4.0); Glomerular Filtration Rate >60 (60-); Glucose, Blood 86 mg/dL (70-99); Potassium, Blood 3.1 mmol/L (3.5-5.5); Sodium, Blood 143 mmol/L (136-145); Total Protein, Blood 5.2 g/dL (6.4-8.2); Troponin I 0.151 ng/mL (0.000-0.040)
[2020-03-15 09:03] LABS: BASOPHILS PERCENT MAN 0 % (0-2); EOSINOPHILS PERCENT MAN 0 % (0-6); LYMPHOCYTES ABSOLUTE MAN 0.58 K/mm3 (0.84-5.20); LYMPHOCYTES PERCENT MAN 76 % (21-46); MONOCYTES ABSOLUTE MAN 0.06 K/mm3 (0.16-1.47); MONOCYTES PERCENT MAN 8 % (4-13); NEUTROPHILS ABSOLUTE MAN 0.12 K/mm3 (1.96-9.15); SEG NEUTROPHILS PERCENT MAN 16 % (41-73); TOTAL CELLS COUNTED 25
[2020-03-15 09:20] LABS: Source, Urine Clean Catch
[2020-03-15 09:27] LABS: Appearance, Urine Clear (Clear); Bilirubin, Urine Neg (Neg); Blood, Urine 1+ (Neg); Color, Urine Yellow (P-Yellow); Glucose Qualitative, Urine Neg (Neg); Ketones, Urine 1+ (Neg); Leukocyte Esterase, Urine 1+ (Neg); Nitrite, Urine Neg (Neg); Protein, Urine 2+ (Neg); Urobilinogen, Urine NORM (Normal)
[2020-03-15 09:42] LABS: Bacteria Rare /hpf; Mucus Mod (0-Heavy); Red Blood Cells, Urine 0-2 /hpf (0-2); Squamous Epithelial Cells Rare /hpf (Few); White Blood Cells, Urine 0-2 /hpf (0-5)
--- NOTE | 2020-03-15 13:22 | NUR ---
PT ARRIVED IN THE UNIT VIA STRETCHER FROM [facility], REPORT RECEIVED FROM ALTHEA YA. PT IS HERE FOR SEPSIS, FEVER POST 1 WEEK CHOLECYSTECTOMY, TURNED OUT PT IS ALSO AFIB 160-190'S. PT IS ALERT AND ORIENTED X3, VITALS HRR AFIB 160'S, PT WAS GIVEN CARDIZEM BOLUS IN THE ER TO START DRIP UPON ARRIVAL IN THE UNIT. BP SYSTOLIC 100-120'S, SATS ABOVE 95% ON RA, AFEBRILE. IV VANCO AND ZOSYN GIVEN UPON ARRIVAL WELL. STARTED AT 10MG/HR CARDIZEM GTT, PT HAD RUNS OF VTACH IN THE MONITOR WHILE ON THE DRIP DRIP TURNED UP TO 15MG/HR AFTER 30MINS, PT STARTED CONVERTING TO SINUS WITH PAC'S AFTER 15 MINS. PT IS NOW CURRENTLY AT 10MG/HR HRR SINUS WITH PAC'S AT 90-100. PT ASYMPTOMATIC WITH VTACH RUNS. PT AHS 3+ PITTING EDEMA BLE LEGS ELEVATED ON PILLOWS. ON NEUTROPENIC PRECAUTIONS DUE/TO LOW WBC. DENIES ANY PAIN AT THIS TIME, NS AT 100MLS/HR X1 BAG. DAUGHTER AT BEDSIDE. WILL MONITOR
--- NOTE | 2020-03-15 14:58 | NUR ---
CARDIZEM GTT STOPPED AT THIS TIME, PT CONVERTED TO SINUS WITH OCCASIONAL PAC'S AND PVC'S RATE 70-80'S. NO COMPLAINS AT THIS TIME. DAUGHTER AT BEDSIDE. WILL MONITOR
--- NOTE | 2020-03-15 17:53 | NUR ---
PT SUMMARY: PT REMAINED SINUS WITH PAC'S 80-90, TEMP 99.2, BP SYSTOLIC 120'S, ON ROOMAIR. DR GIBBS AWARE OF PT'S VTACH EPISODES, ASYMPTOMATIC, DAUGHTER AT BEDSIDE. POTASSIUM BEING REPLACED AT THIS TIME 40MEQ IV. DENIES CHEST PAIN AT THIS TIME. NS RUNNING AT 100 MLS/HR. PT ON IV ABO. WILL REPORT TO ONCOMING SHIFT.
[2020-03-16 03:40] LABS: Hematocrit 23.1 % (33.0-51.0); Mean Corpuscular HGB 29.2 pg (26.0-34.0); Mean Corpuscular HGB Conc 30.3 g/dL (31.5-36.5); Mean Corpuscular Volume 96 fL (80-100); Mean Platelet Volume 9.7 fL (9.1-12.4); Platelet Count 210 K/mm3 (150-400); RDW Coefficient Variation 16.3 % (11.7-14.2); RDW Standard Deviation 58.1 fL (35.1-46.3)
[2020-03-16 03:43] LABS: BASOPHILS PERCENT AUTO 0 % (0-2); EOSINOPHILS PERCENT AUTO 0 % (0-6); IMMATURE GRAN PERCENT AUTO 0 % (0-1); LYMPHOCYTES ABSOLUTE AUTO 0.23 K/mm3 (0.84-5.20); LYMPHOCYTES PERCENT AUTO 54 % (21-46); MONOCYTES PERCENT AUTO 23 % (4-13); NEUTROPHILS PERCENT AUTO 23 % (41-73)
[2020-03-16 04:11] LABS: Alanine Aminotransfer (ALT/SGP 20 U/L (12-78); Albumin, Blood 1.5 g/dL (3.4-5.0); Albumin/Globulin Ratio 0.5 (0.8-1.8); Alk Phos 113 U/L (50-136); Anion Gap 8 mmol/L (6-16); Aspartate Aminotrans (AST/SGOT 23 U/L (12-37); Bilirubin, Total 0.5 mg/dL (0.1-1.0); Blood Urea Nitrogen 11 mg/dL (8-24); Bun/Creatinine Ratio 12.2 (12.0-20.0); CO2, Blood 22 mmol/L (21-32); Calcium, Blood 7.1 mg/dL (8.5-10.1); Chloride, Blood 113 mmol/L (98-108); Glomerular Filtration Rate >60 (60-); Glucose, Blood 115 mg/dL (70-99); Magnesium, Blood 1.7 mg/dL (1.6-2.4); Potassium, Blood 3.3 mmol/L (3.5-5.5); Sodium, Blood 143 mmol/L (136-145); Total Protein, Blood 4.5 g/dL (6.4-8.2)
--- NOTE | 2020-03-16 04:41 | NUR ---
SHIFT SUMMARY: KAT IBARRA IS A&OX4. VSS ORA, NO ACUTE EVENTS OVERNIGHT. SEED TRUCKER PHYSICIAN NOTIFIED WBCs AND HGB DECREASED, NO NEW ORDERS AT THIS TIME. KAT IBARRA IS CONTINENT/INCONTINENT OF BLADDER/BOWEL, ATTENDS IN PLACE. SHE STATES THAT SHE HAS BEEN ON BEDREST AT HOME D/T WEAKNESS. SHE IS TOLERATING PO INTAKE WELL, USES THE CALL LIGHT APPROPRIATELY. SHE IS ABLE TO ROLL AND REPOSITION HERSELF IN BED WELL. IVs X 2 TO R ARM PATENT. SHE IS LYING IN BED WITH HER CALL LIGHT IN REACH. WILL REPORT TO DAY SHIFT RN.
[2020-03-16 04:47] LABS: White Blood Cell Count 0.43 K/mm3 (4.00-11.30)
[2020-03-16 04:56] LABS: BASOPHILS PERCENT MAN 0 % (0-2); EOSINOPHILS PERCENT MAN 0 % (0-6); LYMPHOCYTES PERCENT MAN 47 % (21-46); MONOCYTES PERCENT MAN 0 % (4-13); NEUTROPHILS ABSOLUTE MAN 0.22 K/mm3 (1.96-9.15); SEG NEUTROPHILS PERCENT MAN 53 % (41-73); TOTAL CELLS COUNTED 15
--- NOTE | 2020-03-16 11:27 | NUR ---
PT STATUS CHANGED TO MEDICAL WITH TELE. VITALS HAS BEEN STABLE HRR SINUS 70-80'S, BP SYSTOLIC 130'S, SATS ABOVE 95% ON RA, AFEBRILE. NO ISSUES ENCOUNTERED THIS MORNING. PT HAD A REGULAR BOWEL MOVEMENT BROWN IN COLOR. POTASSIUM REPLACED WITH 40 MEQ PO THIS MORNING. DAUGHTER AT BEDSIDE ASSISTED WITH TRANSFER, REPORT GIVEN TO GURWINDER YA, PT TRANSFERRED VIA HOSPITAL BED LL BELONGINGS SENT WITH PT.
--- NOTE | 2020-03-16 11:34 | NUR ---
ARRIVES VIA CART AT ABOUT 1130. BOTH ARMS ELEVATED ON PILLOWS DUE TO EDEMA. BRUISING BUE SCATTERED. FAINT PEDAL PULSE RT; OTHERWISE, REST STRONG. STERI STRIPS TO ABD DRY AND INTACT WITH NO SIGNS OF INFECTION. TELE ON AND PER TECH SR IN 70'S. FINE CRACKLES RLL; OTHERWISE, CLEAR TO DIM T/O. EDEMA BLE 4+. IV 20 GA RT A/C AND RT WRIST. NEUTROPNEIC WITH DOOR SHUT. CARDIAC DIET. TO HAVE LAB DRAW THIS AFTERNOON FOR H&H. DAUGHTER IN ROOM WITH PATIENT. MARCO.
[2020-03-16 14:16] LABS: Hematocrit 22.4 % (33.0-51.0)
--- NOTE | 2020-03-16 14:51 | NUR ---
LEFT VOICE MAIL MESSAGE FOR THAT LAB BACK AND NOT MUCH DIFFERENCE FROM EARLY AM DRAW.
--- NOTE | 2020-03-16 18:00 | NUR ---
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 RELATIVES OF PATIENT THOUGHT PATIENT WAS TO GET ALBUMIN FOR LOW PROTEIN. ORDERED DIETITIAN CONSULT TO INCREASE PROTEIN. PER JOEY, DIETITIAN, SHE ORDERED GELATIN FOR EACH TRAY. PATIENT ADVISED OF THIS AND THAT IT WAS LEMON TASTING. ST WILL LOOK FOR IT ON DINNER TRAY AND MAKE SURE TO EAT IT. WCTM.
[2020-03-17 04:45] LABS: Hematocrit 21.8 % (33.0-51.0); Hemoglobin 6.8 g/dL (11.5-16.0); Mean Corpuscular HGB 29.1 pg (26.0-34.0); Mean Corpuscular HGB Conc 31.2 g/dL (31.5-36.5); Mean Corpuscular Volume 93 fL (80-100); Mean Platelet Volume 10.4 fL (9.1-12.4); NRBC ABSOLUTE 0.02 K/mm3 (0.00-0.02); NRBC Auto 6.5 /100 WBC (0.0-0.2); Platelet Count 234 K/mm3 (150-400); RDW Coefficient Variation 16.4 % (11.7-14.2); RDW Standard Deviation 56.1 fL (35.1-46.3); Red Blood Cell Count 2.34 M/mm3 (3.80-5.20)
[2020-03-17 05:01] LABS: BASOPHILS PERCENT AUTO 0 % (0-2); EOSINOPHILS PERCENT AUTO 0 % (0-6); IMMATURE GRAN PERCENT AUTO 0 % (0-1); LYMPHOCYTES ABSOLUTE AUTO 0.15 K/mm3 (0.84-5.20); LYMPHOCYTES PERCENT AUTO 48 % (21-46); MONOCYTES ABSOLUTE AUTO 0.08 K/mm3 (0.16-1.47); MONOCYTES PERCENT AUTO 26 % (4-13); NEUTROPHILS ABSOLUTE AUTO 0.08 K/mm3 (1.96-9.15); NEUTROPHILS PERCENT AUTO 26 % (41-73)
[2020-03-17 05:02] LABS: White Blood Cell Count 0.31 K/mm3 (4.00-11.30)
[2020-03-17 05:09] LABS: Calcium, Blood 7.8 mg/dL (8.5-10.1); Potassium, Blood 3.6 mmol/L (3.5-5.5)
--- NOTE | 2020-03-17 07:35 | NUR ---
SHIFT SUMMARY PATIENT ALERT AND ORIENTED. PATIENT HAD NO COMPLAINTS OF PAIN BUT REPORTS FEELING MUCH WEAKER THAN NORMAL. RECEIVED A CALL FROM HEMATOLOGY REGARDING A CRITICAL WBC OF 0.31, DR THOMPSON NOTIFIED. PATIENT SLEPT WELL OVERNIGHT. IVS PATENT AND FLUSHED. BED IN LOWEST POSITION WITH WHEELS LOCKED. CALL LIGHT WITHIN REACH. REPORT GIVEN TO ONCOMING RN.
--- NOTE | 2020-03-17 17:10 | NUR ---
ALERT. ORIENTED. SLEEPING MOST OF SHIFT. DENIES ANY PAIN. STERI STRIPS TO ABD DRY AND INTACT. UNLABORED RESPIRATIONS. SOFT BOWEL MOVEMENTS HAVE SLOWED DOWN.RECEIVED ONE UNIT BLOOD AND TOLERATED WELL. AWAITING . TELE ON AND PER [employer] IT SR. WCTM
--- NOTE | 2020-03-18 04:26 | NUR ---
SHIFT SUMMARY NO ACUTE CHANGES THIS SHIFT, NO C/O ANY KIND, A&O, PLEASANT & COOPERATIVE W/CARE, SLEPT T/O THE NIGHT & SLEEPING AT THIS TIME, CALL LIGHT IN REACH, WILL CONT TO MONITOR UNTIL REPORT GIVEN TO DAY RN.
[2020-03-18 05:15] LABS: Hematocrit 26.4 % (33.0-51.0); Hemoglobin 8.4 g/dL (11.5-16.0); Mean Corpuscular HGB 29.4 pg (26.0-34.0); Mean Corpuscular HGB Conc 31.8 g/dL (31.5-36.5); Mean Corpuscular Volume 92 fL (80-100); Mean Platelet Volume 10.4 fL (9.1-12.4); Platelet Count 281 K/mm3 (150-400); RDW Standard Deviation 54.7 fL (35.1-46.3); Red Blood Cell Count 2.86 M/mm3 (3.80-5.20)
[2020-03-18 05:21] LABS: White Blood Cell Count 0.37 K/mm3 (4.00-11.30)
[2020-03-18 05:40] LABS: BASOPHILS PERCENT MAN 0 % (0-2); EOSINOPHILS PERCENT MAN 0 % (0-6); LYMPHOCYTES ABSOLUTE MAN 0.22 K/mm3 (0.84-5.20); LYMPHOCYTES PERCENT MAN 60 % (21-46); MONOCYTES ABSOLUTE MAN 0.08 K/mm3 (0.16-1.47); MONOCYTES PERCENT MAN 24 % (4-13); NEUTROPHILS ABSOLUTE MAN 0.05 K/mm3 (1.96-9.15); SEG NEUTROPHILS PERCENT MAN 16 % (41-73); TOTAL CELLS COUNTED 25
[2020-03-18 05:50] LABS: Alanine Aminotransfer (ALT/SGP 21 U/L (12-78); Albumin, Blood 1.7 g/dL (3.4-5.0); Albumin/Globulin Ratio 0.5 (0.8-1.8); Alk Phos 118 U/L (50-136); Anion Gap 8 mmol/L (6-16); Aspartate Aminotrans (AST/SGOT 13 U/L (12-37); Bilirubin, Total 0.6 mg/dL (0.1-1.0); Blood Urea Nitrogen 16 mg/dL (8-24); Bun/Creatinine Ratio 17.9 (12.0-20.0); CO2, Blood 23 mmol/L (21-32); Calcium, Blood 7.9 mg/dL (8.5-10.1); Chloride, Blood 111 mmol/L (98-108); Creatinine, Blood 0.89 mg/dL (0.40-1.00); Globulin, Blood 3.1 g/dL (2.2-4.0); Glomerular Filtration Rate >60 (60-); Glucose, Blood 92 mg/dL (70-99); Potassium, Blood 3.3 mmol/L (3.5-5.5); Sodium, Blood 142 mmol/L (136-145); Total Protein, Blood 4.8 g/dL (6.4-8.2)
--- NOTE | 2020-03-18 09:26 | NUR ---
Supportive visit this AM. Spoke with Dexter Sosa prior to visit, discussed case and concerns. Pt sitting on edge of bed upon arrival eating breakfast and Bedside RN Olive offering medications. Pt's children Oumar and Sierra are at bedside. Offered therapeutic listening and answered questions. Listened as family express concerns regarding not having biopsy results back and want to develop a plan if Pt is D/C from hospital before results are in. Pt and family report if prognosis is poor and no realistic treatment is available the plan will be hospice. Oumar reports his is a hospice nurse and understands the philosophy of hospice. Initialy family was considering home health, Oumar reports they are 2 weeks out for admissions and would like professional support in place sooner. Oumar inquires about Pt admitting onto hospice services and revoking hospice if biopsy results in favor of treatment. Educated family that Pt can revoke hospice at anytime. Continued therapeutic listening. Family expresses appreciation of visit and report no other concerns. Provided family with Palliative Care contact information and instructed to call with any questions or concerns. Spoke with Dr Zavala and discussed case. Plan for Pt to stay at least one more day. Spoke with HH&H LiaDexter Santillan, and discussed plan. Palliative Care will remain available.
--- NOTE | 2020-03-18 17:52 | NUR ---
Initial spiritual care note: Per chart, pt is non-samaritan. Pt sleeping when I arrived. Family at bedside. Family is pleasantly dismissive. [facility] services will remain available.
--- NOTE | 2020-03-18 17:56 | NUR ---
WAS JUST HERE WITH THE BONE MARROW RESULTS. NO LEUKEMIA. 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 HER SON AND DAUGHTER HAVE BEEN HERE ALL DAY AND ARE VERY HELPFUL TO HER. SHE HAS BEEN UP AND DOWN TO THE BSC OR THE BATHROOM DEPENDING ON HOW STRONG SHE FEELS AT THE MOMENT. SHE HAS NAPPED IN BETWEEN ACTIVITY. IV ANTIBIOTIC CONTINUES Q8 HRS. NO FEVER. SHE REMAINS CRITICALLY NEUTROPENIC. ORAL POTASSIUM REPLACEMENT WAS GIVEN THIS AM ALSO. TELE NSR 70. NO COMPLAINTS.
[2020-03-19 05:02] LABS: Hematocrit 25.2 % (33.0-51.0); Hemoglobin 8.1 g/dL (11.5-16.0); Mean Corpuscular HGB 29.8 pg (26.0-34.0); Mean Corpuscular HGB Conc 32.1 g/dL (31.5-36.5); Mean Corpuscular Volume 93 fL (80-100); Mean Platelet Volume 10.2 fL (9.1-12.4); NRBC ABSOLUTE 0.02 K/mm3 (0.00-0.02); NRBC Auto 4.9 /100 WBC (0.0-0.2); Platelet Count 278 K/mm3 (150-400); RDW Coefficient Variation 16.2 % (11.7-14.2); RDW Standard Deviation 54.4 fL (35.1-46.3); Red Blood Cell Count 2.72 M/mm3 (3.80-5.20)
[2020-03-19 05:16] LABS: BASOPHILS PERCENT AUTO 0 % (0-2); EOSINOPHILS ABSOLUTE AUTO 0.02 K/mm3 (0.00-0.68); EOSINOPHILS PERCENT AUTO 5 % (0-6); LYMPHOCYTES ABSOLUTE AUTO 0.28 K/mm3 (0.84-5.20); LYMPHOCYTES PERCENT AUTO 68 % (21-46); MONOCYTES ABSOLUTE AUTO 0.09 K/mm3 (0.16-1.47); MONOCYTES PERCENT AUTO 22 % (4-13)
[2020-03-19 05:29] LABS: Alanine Aminotransfer (ALT/SGP 23 U/L (12-78); Albumin, Blood 1.7 g/dL (3.4-5.0); Albumin/Globulin Ratio 0.5 (0.8-1.8); Alk Phos 120 U/L (50-136); Anion Gap 7 mmol/L (6-16); Aspartate Aminotrans (AST/SGOT 16 U/L (12-37); Bilirubin, Total 0.4 mg/dL (0.1-1.0); Blood Urea Nitrogen 14 mg/dL (8-24); Bun/Creatinine Ratio 16.6 (12.0-20.0); CO2, Blood 23 mmol/L (21-32); Calcium, Blood 8.1 mg/dL (8.5-10.1); Chloride, Blood 113 mmol/L (98-108); Creatinine, Blood 0.84 mg/dL (0.40-1.00); Globulin, Blood 3.1 g/dL (2.2-4.0); Glomerular Filtration Rate >60 (60-); Glucose, Blood 93 mg/dL (70-99); Potassium, Blood 3.7 mmol/L (3.5-5.5); Sodium, Blood 143 mmol/L (136-145); Total Protein, Blood 4.8 g/dL (6.4-8.2)
[2020-03-19 06:05] LABS: IMMATURE GRAN PERCENT AUTO 0 % (0-1); NEUTROPHILS PERCENT AUTO 7 % (41-73)
--- NOTE | 2020-03-19 06:10 | NUR ---
SHIFT SUMMARY NO ACUTE CHANGES THIS SHIFT. NO COMPLAINTS OF ANY KIND. SLEPT T/O THE NIGHT. KEPT ARMS AND LEGS ELEVATED T/O NIGHT. PT LAYING IN BED, EYES CLOSED, EVEN AND UNLABORED RESPIRATIONS. NO APPARENT DISTRESS OR NEEDS AT THIS TIME. CALL LIGHT AND PERSONAL ITEMS WITHIN REACH. WILL CONTINUE TO MONITOR UNTIL REPORT GIVEN TO DAY RN.
[2020-03-19 06:34] LABS: White Blood Cell Count 0.41 K/mm3 (4.00-11.30)
--- NOTE | 2020-03-19 13:45 | NUR ---
SHE IS TRYING TO SLEEP THROUGH HER IVIG TREATMENT BUT MEALS AND TRIPS TO THE BATHROOM HAVE GOTTEN IN THE WAY. SHE IS 1/2 [address] THROUGH HER INFUSION WITH NO SIDE EFFECTS SO FAR. IV SITE WNL ALSO. HER DAUGHTER AND SON STAY WIOTH HER ALL DAY, EITHER TOGETHER OR ONE AT A TIME. THEY HELP HER WITH ALL HER ADL'S AND COMFORT. I HAVE BEEN CHECKING ORAL TEMPS. SHE HAD A 99.0 AT 1315. WILL CONTINUE TO MONITOR. SHE AMBULATES IN THE ROOM WITH MINIMAL ASSIST. SHE IS NOT SOB WITH ACTIVITY TODAY YESTERDAY. MAXIMUM IV RATE ON THE IMMUNO GLOBULIN FOR HER IS 124 MLS/HR.
--- NOTE | 2020-03-19 16:05 | NUR ---
HER IVIG INFUSION IS COMPLETE. SHE TOLERATED IT WELL.
--- NOTE | 2020-03-19 19:12 | NUR ---
SHE IS RESTING AFTER DINNER. SHE EATS FAIR. NO FEVER. NO COMPLAINTS. NEUTRAPENIC PRECAUTIONS CONTINUE. SHE RECEIVED HER IVIG TODAY WITHOUT ANY PROBLEMS. IV ANTIBIOTIC CONTINUES. HER SON AND DAUGHTER ARE VERY ATTENTIVE TO HER.
[2020-03-20 04:42] LABS: Hemoglobin 7.7 g/dL (11.5-16.0); Mean Corpuscular HGB 29.6 pg (26.0-34.0); Mean Corpuscular HGB Conc 32.1 g/dL (31.5-36.5); Mean Corpuscular Volume 92 fL (80-100); Mean Platelet Volume 9.9 fL (9.1-12.4); Platelet Count 260 K/mm3 (150-400); RDW Coefficient Variation 16.1 % (11.7-14.2); RDW Standard Deviation 54.4 fL (35.1-46.3)
[2020-03-20 05:14] LABS: White Blood Cell Count 0.46 K/mm3 (4.00-11.30)
[2020-03-20 05:19] LABS: Percent Saturation 15.3 % (15.0-50.0)
--- NOTE | 2020-03-20 05:21 | NUR ---
SHIFT SUMMARY NO ACUTE CHANGES THIS SHIFT. PT SLEPT T/O NIGHT. NO COMPLAINTS OF ANY KIND. KEPT LIMPS ELEVATED WITH PILLOWS. PT IS LAYING IN BED WITH EYES CLOSED, EVEN AND UNLABORED RESPIRATIONS. NO APPARENT NEEDS OR DISTRESS AT THIS TIME. CALL LIGHT AND PERSONAL ITEMS WITHIN REACH. WILL CONTINUE TO MONITOR UNTIL REPORT GIVEN TO DAY RN.
[2020-03-20 05:34] LABS: Alanine Aminotransfer (ALT/SGP 25 U/L (12-78); Albumin, Blood 1.5 g/dL (3.4-5.0); Albumin/Globulin Ratio 0.3 (0.8-1.8); Alk Phos 107 U/L (50-136); Anion Gap 5 mmol/L (6-16); Aspartate Aminotrans (AST/SGOT 13 U/L (12-37); Bilirubin, Total 0.4 mg/dL (0.1-1.0); Blood Urea Nitrogen 12 mg/dL (8-24); Bun/Creatinine Ratio 14.8 (12.0-20.0); CO2, Blood 24 mmol/L (21-32); Calcium, Blood 7.7 mg/dL (8.5-10.1); Chloride, Blood 111 mmol/L (98-108); Creatinine, Blood 0.81 mg/dL (0.40-1.00); Globulin, Blood 4.3 g/dL (2.2-4.0); Glomerular Filtration Rate >60 (60-); Glucose, Blood 121 mg/dL (70-99); Potassium, Blood 3.4 mmol/L (3.5-5.5); Sodium, Blood 140 mmol/L (136-145); Total Protein, Blood 5.8 g/dL (6.4-8.2)
[2020-03-20 06:27] LABS: BASOPHILS PERCENT MAN 0 % (0-2)
[2020-03-20 06:31] LABS: EOSINOPHILS ABSOLUTE MAN 0.01 K/mm3 (0.00-0.68); EOSINOPHILS PERCENT MAN 3 % (0-6); LYMPHOCYTES PERCENT MAN 67 % (21-46); MONOCYTES PERCENT MAN 22 % (4-13); NEUTROPHILS ABSOLUTE MAN 0.03 K/mm3 (1.96-9.15); SEG NEUTROPHILS PERCENT MAN 8 % (41-73); TOTAL CELLS COUNTED 36
--- NOTE | 2020-03-20 09:00 | NUR ---
PT PLEASANT COOP SOMEWHAT FLAT EFFECT, SOME WITHDRAWN. IS PLEASANT. ANS APPROP. A/O X3. H;/R REG, NO MURMER NOTED. NO TELE. LUNGS CLEAR RESP EASY, UNLABOREDD. ON R.A. BT X4 LSAAT BM TODAY. SOFT AND PASTEY PER PT. VOIDS 1 ASST TO BSC. BLE EDEMA X3. DAUGHTER AT BEDSIDE. NO NEW CONCERNS AT THIS TIME. BED IN LOW POSITION, CALL LITE IN REACH, CALLS APPROP
--- NOTE | 2020-03-20 19:10 | NUR ---
pt pleasant today. states ambulated to bathroom twice today. else was to bsc. denies pain. daughter inroom most of day. son patient support partner. no new concerns noted today. bed in low position,c all lite in reach, calls approp
[2020-03-21 09:57] LABS: BASOPHILS ABSOLUTE AUTO 0.01 K/mm3 (0.00-0.23); BASOPHILS PERCENT AUTO 2 % (0-2); EOSINOPHILS ABSOLUTE AUTO 0.01 K/mm3 (0.00-0.68); EOSINOPHILS PERCENT AUTO 2 % (0-6); Hematocrit 23.2 % (33.0-51.0); Hemoglobin 7.4 g/dL (11.5-16.0); LYMPHOCYTES PERCENT AUTO 61 % (21-46); MONOCYTES ABSOLUTE AUTO 0.18 K/mm3 (0.16-1.47); MONOCYTES PERCENT AUTO 27 % (4-13); Mean Corpuscular HGB 29.5 pg (26.0-34.0); Mean Corpuscular HGB Conc 31.9 g/dL (31.5-36.5); Mean Corpuscular Volume 92 fL (80-100); Mean Platelet Volume 10.1 fL (9.1-12.4); NEUTROPHILS ABSOLUTE AUTO 0.03 K/mm3 (1.96-9.15); NEUTROPHILS PERCENT AUTO 5 % (41-73); NRBC ABSOLUTE 0.02 K/mm3 (0.00-0.02); Platelet Count 287 K/mm3 (150-400); RDW Coefficient Variation 16.1 % (11.7-14.2); RDW Standard Deviation 54.3 fL (35.1-46.3); Red Blood Cell Count 2.51 M/mm3 (3.80-5.20)
[2020-03-21 10:08] LABS: Alanine Aminotransfer (ALT/SGP 40 U/L (12-78); Albumin, Blood 2.6 g/dL (3.4-5.0); Albumin/Globulin Ratio 0.7 (0.8-1.8); Alk Phos 134 U/L (50-136); Anion Gap 6 mmol/L (6-16); Aspartate Aminotrans (AST/SGOT 37 U/L (12-37); Bilirubin, Total 0.6 mg/dL (0.1-1.0); Blood Urea Nitrogen 12 mg/dL (8-24); Bun/Creatinine Ratio 15.7 (12.0-20.0); CO2, Blood 25 mmol/L (21-32); Chloride, Blood 110 mmol/L (98-108); Creatinine, Blood 0.76 mg/dL (0.40-1.00); Globulin, Blood 3.8 g/dL (2.2-4.0); Glomerular Filtration Rate >60 (60-); Glucose, Blood 95 mg/dL (70-99); Potassium, Blood 3.5 mmol/L (3.5-5.5); Sodium, Blood 141 mmol/L (136-145); Total Protein, Blood 6.4 g/dL (6.4-8.2)
[2020-03-21 10:27] LABS: IMMATURE GRAN ABSOLUTE AUTO 0.03 K/mm3 (0.00-0.10); IMMATURE GRAN PERCENT AUTO 5 % (0-1); White Blood Cell Count 0.66 K/mm3 (4.00-11.30)
--- NOTE | 2020-03-21 18:42 | NUR ---
SHIFT SUMMARY HERRERA COMPLAINED OF HEMHORROID PAIN THIS SHIFT, GOT TUCKS PADS AND HYRDROCORTISONE CREAM ORDERED AND APPLIED. SBA TO BR WITH WALKER, CONTINENT IN BR, HAD A FEW BM THIS SHIFT. WORKED WITH PT. WBC ALVIN TO .66. TOOK MEDS PRESCRIBED, WCTM
--- NOTE | 2020-03-21 19:36 | NUR ---
RECEIVED BEDSIDE REPORT FROM BHAKTI NAYAK. NO NEEDS AT THIS TIME. WILL MONITOR AND PROVIDE CARE T/O SHIFT. CALL LT IN REACH.
--- NOTE | 2020-03-21 21:34 | NUR ---
ASISTED PT TO BR USING FWW. PT STATES SHE FEELS LIKE SHE'S DEFINITELY GEETING STRONGER. DENIES PAIN, SOB, NAUSEA. WILL PLACE CALL LT IN REACH,
--- NOTE | 2020-03-21 23:06 | NUR ---
PT RESTING QUIETLY. CALL LT IN REACH.
--- NOTE | 2020-03-22 04:01 | NUR ---
PT STATES DOING OK, NO NEEDS AT THIS TIME. CALL LT IN REACH.
--- NOTE | 2020-03-22 04:30 | NUR ---
SHIFT SUMMARY: NO COMPLAINTS OF PAIN, NAUSEA, OR SOB. CONTINUES TO HAVE BLE PITTING EDEMA, BLE ELEVATED T/O SHIFT. SBA DURING AMBULATION USING FWW. PT STATES SHE CAN TELL SHE'S FEELING BETTER AND STRONGER. NO ACUTE CHANGES. WILL CONTINUE TO MONITOR AND PROVIDE CARE UNTIL SHIFT REPORT. CALL LT IN REACH.
[2020-03-22 05:31] LABS: Hematocrit 23.6 % (33.0-51.0); Hemoglobin 7.3 g/dL (11.5-16.0); Mean Corpuscular HGB 29.1 pg (26.0-34.0); Mean Corpuscular HGB Conc 30.9 g/dL (31.5-36.5); Mean Corpuscular Volume 94 fL (80-100); Mean Platelet Volume 9.9 fL (9.1-12.4); Platelet Count 264 K/mm3 (150-400); RDW Coefficient Variation 16.2 % (11.7-14.2); Red Blood Cell Count 2.51 M/mm3 (3.80-5.20)
[2020-03-22 05:33] LABS: BASOPHILS PERCENT AUTO 0 % (0-2); EOSINOPHILS ABSOLUTE AUTO 0.01 K/mm3 (0.00-0.68); EOSINOPHILS PERCENT AUTO 2 % (0-6); IMMATURE GRAN PERCENT AUTO 0 % (0-1); LYMPHOCYTES ABSOLUTE AUTO 0.27 K/mm3 (0.84-5.20); LYMPHOCYTES PERCENT AUTO 53 % (21-46); MONOCYTES ABSOLUTE AUTO 0.19 K/mm3 (0.16-1.47); MONOCYTES PERCENT AUTO 37 % (4-13); NEUTROPHILS ABSOLUTE AUTO 0.04 K/mm3 (1.96-9.15); NEUTROPHILS PERCENT AUTO 8 % (41-73)
[2020-03-22 05:34] LABS: White Blood Cell Count 0.51 K/mm3 (4.00-11.30)
--- NOTE | 2020-03-22 05:43 | NUR ---
CRITICAL LAB VALUE WBC 0.51 RECEIVED. NO CHANGE IN PT'S CONDITION. PT HAS STATED SHE'S FEELING MUCH STRONGER. DRS AWARE OF FLUCTUATING WBC. TREATMENT OF IVIG HAS BEEN STARTED. ABX ARE CURRENTLY IN PLACE.
[2020-03-22 05:48] LABS: Alanine Aminotransfer (ALT/SGP 36 U/L (12-78); Albumin, Blood 2.3 g/dL (3.4-5.0); Albumin/Globulin Ratio 0.6 (0.8-1.8); Alk Phos 114 U/L (50-136); Anion Gap 6 mmol/L (6-16); Aspartate Aminotrans (AST/SGOT 21 U/L (12-37); Bilirubin, Total 0.5 mg/dL (0.1-1.0); Blood Urea Nitrogen 14 mg/dL (8-24); Bun/Creatinine Ratio 17.3 (12.0-20.0); CO2, Blood 25 mmol/L (21-32); Chloride, Blood 110 mmol/L (98-108); Creatinine, Blood 0.81 mg/dL (0.40-1.00); Globulin, Blood 3.7 g/dL (2.2-4.0); Glomerular Filtration Rate >60 (60-); Glucose, Blood 93 mg/dL (70-99); Potassium, Blood 3.1 mmol/L (3.5-5.5); Sodium, Blood 141 mmol/L (136-145)
--- NOTE | 2020-03-22 13:44 | NUR ---
TRANSFER TO PCU PT TO TRANSFER TO PCU 5. REPORT RECEIVED FROM BHAKTI TELLEZ.
--- NOTE | 2020-03-22 14:06 | NUR ---
1200 REPORTS OF CP SON CAME OUT OF ROOM REPORTING THAT THE PATIENT WAS SHORT OF BREATH, TACHYCARDIC, AND HAVING CHEST PAIN RADIATING TO NECK AND SHOULDERS. UPON ASSESSMENT PATIENT FOUND WITH TACHY, IRREGULAR HEART BEAT AND RHYTHM. PATIENT REPORTS SIGNIFICANT CARDIAC HISTORY. NOTIFIED DR BRO. EKG DONE. ORDERS FOR TELE, LABETALOL PUSH, AND TRANSFER TO PCU. UPON PLACEMENT OF TELE, PATIENT HAD CONVERTED OUT OF AFIB. HR STABLE. DR BRO NOTIFIED OF CHANGE AND THAT RN WAS HOLDING THE LABETOLOL. QUESTIONED TX TO PCU TO WHICH DR BRO STATED THE PATIENT DID IN FACT NEED TO GO TO PCU DUE TO HER CARDIAC HISTORY. REPORT CALLED TO JACKELYN YA IN PCU
--- NOTE | 2020-03-22 18:00 | NUR ---
SUMMARY SINCE TRANSFERRING TO ICU, CARDIAC RHYTHM HAS REMAINED IN NORMAL SINUS RHYTHM. BP ELEVATED BUT IMPROVED. LOW GRADE FEVER, IMPROVED. OTHERWISE, VITALS STABLE. SEE ASSESSMENT. PT HAS DENIED GENERALIZED PAIN, CHEST PAIN, DISCOMFORT, SOB. FAMILY AT BEDSIDE. PT HAS CALLED APPROPRIATELY FOR NEEDS. STAND BY ASSIST WITH FRONT WHEEL WALKER FOR ADL'S. PT'S BIGGEST COMPLAINT IS LACK OF APPETITE.
[2020-03-23 03:36] LABS: Hemoglobin 7.9 g/dL (11.5-16.0); Mean Corpuscular HGB 28.6 pg (26.0-34.0); Mean Corpuscular HGB Conc 30.4 g/dL (31.5-36.5); Mean Corpuscular Volume 94 fL (80-100); Platelet Count 261 K/mm3 (150-400); Red Blood Cell Count 2.76 M/mm3 (3.80-5.20)
[2020-03-23 03:38] LABS: BASOPHILS PERCENT AUTO 0 % (0-2); EOSINOPHILS ABSOLUTE AUTO 0.01 K/mm3 (0.00-0.68); EOSINOPHILS PERCENT AUTO 2 % (0-6); IMMATURE GRAN PERCENT AUTO 0 % (0-1); LYMPHOCYTES ABSOLUTE AUTO 0.28 K/mm3 (0.84-5.20); LYMPHOCYTES PERCENT AUTO 46 % (21-46); MONOCYTES ABSOLUTE AUTO 0.28 K/mm3 (0.16-1.47); MONOCYTES PERCENT AUTO 46 % (4-13); NEUTROPHILS ABSOLUTE AUTO 0.04 K/mm3 (1.96-9.15); NEUTROPHILS PERCENT AUTO 7 % (41-73)
[2020-03-23 03:39] LABS: White Blood Cell Count 0.61 K/mm3 (4.00-11.30)
[2020-03-23 03:55] LABS: Alanine Aminotransfer (ALT/SGP 41 U/L (12-78); Albumin, Blood 2.3 g/dL (3.4-5.0); Albumin/Globulin Ratio 0.6 (0.8-1.8); Alk Phos 118 U/L (50-136); Anion Gap 4 mmol/L (6-16); Aspartate Aminotrans (AST/SGOT 26 U/L (12-37); Bilirubin, Total 0.7 mg/dL (0.1-1.0); Blood Urea Nitrogen 16 mg/dL (8-24); Bun/Creatinine Ratio 19.8 (12.0-20.0); CO2, Blood 27 mmol/L (21-32); Calcium, Blood 8.3 mg/dL (8.5-10.1); Chloride, Blood 109 mmol/L (98-108); Creatinine, Blood 0.81 mg/dL (0.40-1.00); Globulin, Blood 3.9 g/dL (2.2-4.0); Glomerular Filtration Rate >60 (60-); Glucose, Blood 106 mg/dL (70-99); Potassium, Blood 3.7 mmol/L (3.5-5.5); Sodium, Blood 140 mmol/L (136-145); Total Protein, Blood 6.2 g/dL (6.4-8.2)
--- NOTE | 2020-03-23 05:46 | NUR ---
PT RESTED THROUGH NIGHT AO TELE AFIB/NSR ROOM AIR STAND BY ASSIST WITH WALKER UOP X2 1 BM CALLED MD FOR PRN BP MEDICINE - HYDRALAZINE X1 WITH IMPROVEMENT VSS, AFEBRILE CALL LIGHT WITHIN REACH, BED IN LOWEST POSITION. WILL CONTINUE TO MONITOR.
--- NOTE | 2020-03-23 08:00 | NUR ---
ASSUMED CARE PT ALERT AND ORIENTED. PT DENIES ANY PAIN. O2 SATS REMAIN ABOVE 90% ON RA. BP STABLE. HR CONVERTED TO AFIB THIS AM 140-160'S. DR. BRO NOTIFIED. NEW ORDERS PROVIDED FOR CARDIZEM PUSH. IF CARDIZEM PUSH DOES NOT BRING THE HEART RATE DOWN WE WILL START THE CARDIZEM DRIP. PER DR. BRO, DR. LEWIS TO BE IN TODAY TO SEE PT. WILL CONTINUE TO MONITOR CLOSELY.
--- NOTE | 2020-03-23 10:26 | NUR ---
UPDATE REPORT GIVEN TO ESTRELLA YA TO ASSUME CARE.
--- NOTE | 2020-03-23 11:02 | NUR ---
ASSUMED CARE FROM BHAKTI ZAMUDIO. CARDIZEM INCREASED TO 15ML/HR FOR HEART RATE OF 170.
--- NOTE | 2020-03-23 11:17 | NUR ---
FAMILY STATES DOES NOT WANT METHOTRAXATE STARTED UNTIL THEY SPEAK WITH DR. LEWIS WHO WILL BE IN FOR EVAL.
--- NOTE | 2020-03-23 13:11 | NUR ---
CARDIZEM DECREASED TO 5MG/ML AT APPROX 11;30. HEART RATE 87 IN SINUS AT THIS TIME. WILL CONTINUE TO MONITOR AND TITRATE OFF CARDIZEM PER ORDERS.
--- NOTE | 2020-03-23 13:12 | NUR ---
CARDIZEM DC'D AT 1:10. HEART RATE 76 IN SINUS AT THIS TIME. WILL CONTINUE TO MONITOR.
--- NOTE | 2020-03-23 18:40 | NUR ---
SHIFT SUMMARY; A/A/OX4 THROUGHOUT SHIFT. CARDIZEM DRIP DC'D TODAY. SINUS RHYTHM THROUGHOUT AFTERNOON WITH RATE 70-90. EVALUATED TODAY BY DR. LEWIS, METHOTRAXTE GIVEN TODAY PER DR. LEWIS ORDERS AND DISCUSSED IN GREAT DETAIL WITH FAMILY. VSS DURING SHIFT, SBA IN ROOM NEEDED TO RESTROOM, REPOSITIONS INDEPENDANTLY. WILL CONTINUE TO MONITOR AND TREAT UNTIL CHANGE OF SHIFT.
[2020-03-24 05:44] LABS: Hematocrit 27.5 % (33.0-51.0); Mean Corpuscular HGB 29.1 pg (26.0-34.0); Mean Corpuscular HGB Conc 32.7 g/dL (31.5-36.5); Mean Platelet Volume 10.1 fL (9.1-12.4); Platelet Count 247 K/mm3 (150-400); RDW Coefficient Variation 16.1 % (11.7-14.2); RDW Standard Deviation 52.4 fL (35.1-46.3); Red Blood Cell Count 3.09 M/mm3 (3.80-5.20)
[2020-03-24 05:47] LABS: BASOPHILS PERCENT AUTO 0 % (0-2); EOSINOPHILS PERCENT AUTO 0 % (0-6); IMMATURE GRAN PERCENT AUTO 0 % (0-1); LYMPHOCYTES ABSOLUTE AUTO 0.24 K/mm3 (0.84-5.20); LYMPHOCYTES PERCENT AUTO 59 % (21-46); MONOCYTES ABSOLUTE AUTO 0.12 K/mm3 (0.16-1.47); MONOCYTES PERCENT AUTO 29 % (4-13); Mean Corpuscular Volume 89 fL (80-100); NEUTROPHILS ABSOLUTE AUTO 0.05 K/mm3 (1.96-9.15); NEUTROPHILS PERCENT AUTO 12 % (41-73); White Blood Cell Count 0.41 K/mm3 (4.00-11.30)
[2020-03-24 06:00] LABS: Alanine Aminotransfer (ALT/SGP 46 U/L (12-78); Albumin/Globulin Ratio 0.5 (0.8-1.8); Alk Phos 105 U/L (50-136); Anion Gap 6 mmol/L (6-16); Aspartate Aminotrans (AST/SGOT 30 U/L (12-37); Bilirubin, Total 0.9 mg/dL (0.1-1.0); Blood Urea Nitrogen 16 mg/dL (8-24); Bun/Creatinine Ratio 19.6 (12.0-20.0); CO2, Blood 28 mmol/L (21-32); Calcium, Blood 8.4 mg/dL (8.5-10.1); Chloride, Blood 106 mmol/L (98-108); Creatinine, Blood 0.82 mg/dL (0.40-1.00); Globulin, Blood 3.9 g/dL (2.2-4.0); Glomerular Filtration Rate >60 (60-); Glucose, Blood 89 mg/dL (70-99); Magnesium, Blood 1.8 mg/dL (1.6-2.4); Potassium, Blood 3.2 mmol/L (3.5-5.5); Sodium, Blood 140 mmol/L (136-145); Total Protein, Blood 5.9 g/dL (6.4-8.2)
[2020-03-24 06:46] LABS: Performing Lab SYMBIODX; Test Name FLOW BLOOD
--- NOTE | 2020-03-24 17:45 | NUR ---
SHIFT SUMMARY PT IS ALERT AND ORIENTEDx4. TMAX THIS MORNING WAS 100.5. PT WAS ALSO SITTING ON THE EDGE OF BED AND FELT TIRED DURING BREAKFAST. PT WAS FOUND TO BE IN A-FIB RVR WITH RATES 150'S-160'S. TYLENOL GIVEN FOR FEVER AND AM MEDS GIVEN WHICH INCLUDED LOPRESSOR FOR HR CONTROL. DR OSORIO WAS NOTIFIED AND WANTED TO WAIT ON ANY ADDITIONAL TREATMENT FOR HR. ABOUT A HOUR LATER, PT CONVERTED BACK TO SINUS RHYTHM AND FEVER HAD STARTED TO COME DOWN. PT WAS HTN TODAY WITH SBP'S 160'S-170'S. PT DID NOT MEET PARAMETERS FOR PRN BP MEDS. CONTINOUSLY KEPT PT AND FAMILY UPDATED ON PLAN OF CARE AND MEDICATIONS.
--- NOTE | 2020-03-24 19:41 | NUR ---
AT ABOUT 1850 PT HAD A 9 SEC RUN OF VTACH PER ANIMAL RIDE ATTENDANT. CHECK ON PT, PT WAS AWAKE AND TALKING WITH FAMILY, DIDN'T REPORT FEELING ANY DIFFERENT. DR OSORIO NOTIFIED OF VTACH, NO NEW ORDERS RECEIVED.
[2020-03-25 04:11] LABS: Hematocrit 27.8 % (33.0-51.0); Hemoglobin 9.1 g/dL (11.5-16.0); Mean Corpuscular HGB 29.3 pg (26.0-34.0); Mean Corpuscular HGB Conc 32.7 g/dL (31.5-36.5); Mean Corpuscular Volume 89 fL (80-100); Mean Platelet Volume 10.1 fL (9.1-12.4); Platelet Count 238 K/mm3 (150-400); RDW Coefficient Variation 15.9 % (11.7-14.2); RDW Standard Deviation 52.7 fL (35.1-46.3); Red Blood Cell Count 3.11 M/mm3 (3.80-5.20)
[2020-03-25 04:12] LABS: BASOPHILS PERCENT AUTO 0 % (0-2); EOSINOPHILS PERCENT AUTO 0 % (0-6); IMMATURE GRAN PERCENT AUTO 0 % (0-1); LYMPHOCYTES ABSOLUTE AUTO 0.12 K/mm3 (0.84-5.20); LYMPHOCYTES PERCENT AUTO 80 % (21-46); MONOCYTES ABSOLUTE AUTO 0.03 K/mm3 (0.16-1.47); MONOCYTES PERCENT AUTO 20 % (4-13); NEUTROPHILS PERCENT AUTO 0 % (41-73)
[2020-03-25 04:13] LABS: White Blood Cell Count 0.15 K/mm3 (4.00-11.30)
[2020-03-25 04:37] LABS: Alanine Aminotransfer (ALT/SGP 69 U/L (12-78); Albumin/Globulin Ratio 0.5 (0.8-1.8); Alk Phos 117 U/L (50-136); Anion Gap 6 mmol/L (6-16); Aspartate Aminotrans (AST/SGOT 64 U/L (12-37); Bilirubin, Total 1.4 mg/dL (0.1-1.0); Blood Urea Nitrogen 22 mg/dL (8-24); Bun/Creatinine Ratio 27.4 (12.0-20.0); CO2, Blood 27 mmol/L (21-32); Calcium, Blood 8.3 mg/dL (8.5-10.1); Chloride, Blood 107 mmol/L (98-108); Globulin, Blood 3.7 g/dL (2.2-4.0); Glomerular Filtration Rate >60 (60-); Glucose, Blood 93 mg/dL (70-99); Potassium, Blood 3.3 mmol/L (3.5-5.5); Sodium, Blood 140 mmol/L (136-145); Total Protein, Blood 5.7 g/dL (6.4-8.2)
--- NOTE | 2020-03-25 06:00 | NUR ---
ASSUMED CARE AT 1900. VERY SLEEPY AROUSED AND ALERT AND ORIRNTED. DEINES PAIN BUT REPORTS FEET VERY SENSITIVE TO TOUCH DUE TO SWELLILNG. EDEMA 2-3 + PITTING,.MOSTLY ANASARCA. ENC TO COUGH AND DEEP BREATHE, LUNGS CLEAR AND BASES DIMINISHED, SB WITH 44 LOWEST AT START OF SHIFT. VERY RARE DRY COUGH. LATER TEMP INCREASING, HR 100-104 . TYLENOL GIVEN ONCE, AND NOTED TEMP IMPROVEMENT WHEN COOLING MEASURES PER TAKING OFF ALOT OF COVERS. REFUSED FAN. DUE TO CHILLING EASILY COVERS REMOVED OR WHEN OOB W/ WALKER TO BR. LIGHT BROWN STOOL . NO SIGN OF GI BLEED. VERY POOR EFFORT IN TAKING HS SNACK OR FLUIDS. CONSTANTLY ENCOURAGED. NO AF CONVERT ALL NOC BUT HR CONT AT 95-105 ST. PO APRESOLINE GIVEN X 1 AND GOOD RESULTS. ONLY VOIDED X 1 AND NOT MEASURED WITH LARGE BM. BUT POOR FLUID INTAKE TONIGHT
--- NOTE | 2020-03-25 17:19 | NUR ---
SHIFT NOTE PT DID HAVE AN EPISODE OF AFIB WITH A RATE OF 150-180 WHILE SHE WAS FEBRILE THIS AM. WAS AWARE OF THIS EVENT. FEVER RESPONDED WELL TO TYLENOL AND FAN. PT HAS OTHERWISE BEEN RESTING WELL IN BED, VSS. PT AMBULATED TO SHOWER AND BACK TO CHAIR TODAY WHICH SHE TOLERATED WELL. PT ALERT ANSWERING QUESTIONS APPROPRIATELY. AWAITING RESULTS OF CT.
[2020-03-26 03:53] LABS: Hematocrit 29.3 % (33.0-51.0); Hemoglobin 9.4 g/dL (11.5-16.0); Mean Corpuscular HGB 28.7 pg (26.0-34.0); Mean Corpuscular HGB Conc 32.1 g/dL (31.5-36.5); Mean Corpuscular Volume 90 fL (80-100); Mean Platelet Volume 10.4 fL (9.1-12.4); Platelet Count 184 K/mm3 (150-400); RDW Coefficient Variation 16.1 % (11.7-14.2); RDW Standard Deviation 53.3 fL (35.1-46.3); Red Blood Cell Count 3.27 M/mm3 (3.80-5.20)
[2020-03-26 04:01] LABS: BASOPHILS PERCENT AUTO 0 % (0-2); EOSINOPHILS ABSOLUTE AUTO 0.01 K/mm3 (0.00-0.68); EOSINOPHILS PERCENT AUTO 4 % (0-6); IMMATURE GRAN PERCENT AUTO 0 % (0-1); LYMPHOCYTES PERCENT AUTO 80 % (21-46); MONOCYTES ABSOLUTE AUTO 0.02 K/mm3 (0.16-1.47); MONOCYTES PERCENT AUTO 8 % (4-13); NEUTROPHILS ABSOLUTE AUTO 0.02 K/mm3 (1.96-9.15); NEUTROPHILS PERCENT AUTO 8 % (41-73)
[2020-03-26 04:02] LABS: White Blood Cell Count 0.25 K/mm3 (4.00-11.30)
[2020-03-26 04:15] LABS: Albumin, Blood 1.9 g/dL (3.4-5.0); Albumin/Globulin Ratio 0.5 (0.8-1.8); Bilirubin, Total 0.8 mg/dL (0.1-1.0); Bun/Creatinine Ratio 30.3 (12.0-20.0); Calcium, Blood 8.5 mg/dL (8.5-10.1); Creatinine, Blood 0.96 mg/dL (0.40-1.00); Globulin, Blood 4.1 g/dL (2.2-4.0); Magnesium, Blood 1.8 mg/dL (1.6-2.4); Potassium, Blood 4.4 mmol/L (3.5-5.5)
--- NOTE | 2020-03-26 06:20 | NUR ---
SHIFT SUMMARY PT SLEEPING IN ROOM COMFORTABLY AT THIS TIME. NO ACUTE CHANGES IN STATUS T/O NIGHT. PT SLEPT WELL AND DENIED ANY PAIN T/O NIGHT. DNEIED CP OR SOB. RESP EVEN UNLBAORED ON RA W/ SATS >92%. PT FEVER REMAINED LOW T/O MOST OF THE NIGHT, ONE TEMP NOTED TO BE 99.5, PT REQUESTED TYLENOL TO PREVENT ANY HIGHER FEVER. TOP BLANKET REMOVED FROM PT WELL. FEVER THEN DOWN TO 98.0. PT DENIED OTHER NEEDS. REPORTS IS TIRED THIS AM AND WANTS TO SLEEP. PT EDUCATED ABOUT BEDSIDE REPORT, PT REQUESTING NO BEDSIDE REPORT THIS AM. CALL LIGHT IN REACH.
--- NOTE | 2020-03-26 18:10 | NUR ---
blood pressure verified before administration of metoprolol: 148/72 ; pulse is 68 bpm.
[2020-03-27 04:50] LABS: Hematocrit 29.7 % (33.0-51.0); Hemoglobin 9.7 g/dL (11.5-16.0); Mean Corpuscular HGB 29.1 pg (26.0-34.0); Mean Corpuscular HGB Conc 32.7 g/dL (31.5-36.5); Mean Corpuscular Volume 89 fL (80-100); NRBC ABSOLUTE 0.02 K/mm3 (0.00-0.02); NRBC Auto 7.4 /100 WBC (0.0-0.2); Platelet Count 194 K/mm3 (150-400); RDW Coefficient Variation 16.2 % (11.7-14.2); RDW Standard Deviation 52.8 fL (35.1-46.3); Red Blood Cell Count 3.33 M/mm3 (3.80-5.20)
[2020-03-27 05:07] LABS: White Blood Cell Count 0.27 K/mm3 (4.00-11.30)
--- NOTE | 2020-03-27 05:10 | NUR ---
[facility] CALLED AT APPROX 0506 TO NOTIFY PT WBC IS 0.27. THIS IS AN INCREASE FROM PREVIOUS DAY. NOTIFIED CHARGE NURSE, SANG. VALUE IS TRENDING IN THE RIGHT DIRECTION. WILL CONTINUE TO MONITOR.
[2020-03-27 05:20] LABS: Alanine Aminotransfer (ALT/SGP 68 U/L (12-78); Albumin/Globulin Ratio 0.5 (0.8-1.8); Alk Phos 101 U/L (50-136); Anion Gap 7 mmol/L (6-16); Aspartate Aminotrans (AST/SGOT 27 U/L (12-37); Bilirubin, Total 0.7 mg/dL (0.1-1.0); Blood Urea Nitrogen 32 mg/dL (8-24); Bun/Creatinine Ratio 37.5 (12.0-20.0); CO2, Blood 25 mmol/L (21-32); Calcium, Blood 8.7 mg/dL (8.5-10.1); Chloride, Blood 106 mmol/L (98-108); Creatinine, Blood 0.85 mg/dL (0.40-1.00); Globulin, Blood 4.1 g/dL (2.2-4.0); Glomerular Filtration Rate >60 (60-); Glucose, Blood 89 mg/dL (70-99); Sodium, Blood 138 mmol/L (136-145); Total Protein, Blood 6.1 g/dL (6.4-8.2)
[2020-03-27 05:42] LABS: BASOPHILS PERCENT MAN 0 % (0-2); EOSINOPHILS ABSOLUTE MAN 0.04 K/mm3 (0.00-0.68); EOSINOPHILS PERCENT MAN 16 % (0-6); LYMPHOCYTES ABSOLUTE MAN 0.18 K/mm3 (0.84-5.20); LYMPHOCYTES PERCENT MAN 68 % (21-46); MONOCYTES ABSOLUTE MAN 0.04 K/mm3 (0.16-1.47); MONOCYTES PERCENT MAN 16 % (4-13); TOTAL CELLS COUNTED 25
[2020-03-27 05:50] LABS: SEG NEUTROPHILS PERCENT MAN 0 % (41-73)
--- NOTE | 2020-03-27 06:27 | NUR ---
SHIFT SUMMARY NO ACUTE CHANGES THIS SHIFT. PT A&O X4. SP02 >94% ON RA. DENIES SOB. TELEMETRY READS SR, HR 60'S-70'S. PT'S TEMPERATURE REMAINED LOW MOST OF THE SHIFT. MOST RECENT TEMP SHOWED 100.2. ADMINISTERED TYLENOL PER EMAR, REMOVED 1 BLANKET FROM PT, WITH ONE SHEET AND BLANKET REMAINING, AND TURNED OFF HEAT IN ROOM. PT AMBULATED WITH ASSISTANCE AND WALKER TO BATHROOM X2 THIS SHIFT. PRODUCED 2 BROWN, SOFT BM'S. PT DENIES PAIN/DISCOMFORT OF ANY KIND. SLEPT T/O THE NIGHT. CALL LIGHT IN REACH. WILL CONTINUE TO MONITOR UNTIL END OF SHIFT.
--- NOTE | 2020-03-27 08:00 | NUR ---
FLAGYL HAS NOT ARRIVED FROM PHARMACY, PT HAS ALSO NOT ATE BREAKFAST AT THIST TIME. TO AVOID GI UPSET FLAGY WILL NOT BE ADMINISTERED UNTIL PT HAS ATE BREAKFAST, MEDICAL FLOOR RN WILL BE NOTIFIED OF THIS
--- NOTE | 2020-03-27 08:35 | NUR ---
FLAGYL IS HUNG AND INFUSING WELL, WILL CONTINUE ON TRANSFER TO MEDICAL FLOOR
--- NOTE | 2020-03-27 09:59 | NUR ---
pT TO MEDICAL FLOOR. REPORT TO MARCY YA, MARCY IS AWARE THAT MORNING 0900 MEDICATIONS HAVE NOT BEEN GIVEN AND AGREES THAT SHE CAN ADMINISTER THEM ON ARRIVAL TO MEDICAL FLOOR. FAMILY CONCERNS OF PT TRANSFER TO MEDICAL FLOOR ARE ADDRESSED WITH WEATHER ALGORITHM SCIENTIST GABE
--- NOTE | 2020-03-27 18:20 | NUR ---
SHIFT SUMMARY PT A/O X4; PLEASANT AND COOPERATIVE WITH CARE. FAMILY HAS BEEN AT THE BEDSIDE ALL DAY. FAMILY HELPS WITH THE MAJORITY OF ADLS. PT HAD A LOW GRADE FEVER THIS AM BUT HAS COME DOWN THIS AFTER NOON. DENIES PAIN OR SOB. O2 SAT 95% ON ROOM AIR. VSS. WILL CONTINUE TO MONITOR.
--- NOTE | 2020-03-27 20:48 | NUR ---
PT RESTING COMFORTABLY IN BED; NEUTROPENIC PRECAUTIONS MAINTAINED; FAMILY AT SIDE.
[2020-03-28 05:17] LABS: Hematocrit 26.3 % (33.0-51.0); Hemoglobin 8.7 g/dL (11.5-16.0); Mean Corpuscular HGB 29.2 pg (26.0-34.0); Mean Corpuscular HGB Conc 33.1 g/dL (31.5-36.5); Mean Corpuscular Volume 88 fL (80-100); Mean Platelet Volume 10.4 fL (9.1-12.4); Platelet Count 111 K/mm3 (150-400); RDW Coefficient Variation 16.3 % (11.7-14.2); Red Blood Cell Count 2.98 M/mm3 (3.80-5.20)
[2020-03-28 05:29] LABS: White Blood Cell Count 0.21 K/mm3 (4.00-11.30)
--- NOTE | 2020-03-28 05:34 | NUR ---
SHIFT SUMMARY: 84 Y/O FEMALE RESTED COMFORTABLY ALL SHIFT; PT DEVELOPED TEMPERATURE 102.2 AT 0415 WITH TYLENOL 650MG PO GIVEN, ICE PACKS PLACED UNDER ARMS; TEMPERATURE RECHECKED IN 1 HOUR AT 99.5 WITH SKIN COOLER TO TOUCH; PT CONTINUES TO BE WEAK AND LETHARGIC; NO FAMILY MEMBERS SPENT NOC; DENIES PAIN OR NAUSEA; BED ALARM APPLIED, BED LOW POSITION WITH CALL LIGHT AT SIDE.
[2020-03-28 05:41] LABS: Alanine Aminotransfer (ALT/SGP 44 U/L (12-78); Albumin, Blood 1.7 g/dL (3.4-5.0); Albumin/Globulin Ratio 0.4 (0.8-1.8); Alk Phos 93 U/L (50-136); Anion Gap 7 mmol/L (6-16); Aspartate Aminotrans (AST/SGOT 21 U/L (12-37); Bilirubin, Total 0.9 mg/dL (0.1-1.0); Blood Urea Nitrogen 26 mg/dL (8-24); Bun/Creatinine Ratio 32.1 (12.0-20.0); CO2, Blood 25 mmol/L (21-32); Chloride, Blood 108 mmol/L (98-108); Creatinine, Blood 0.81 mg/dL (0.40-1.00); Globulin, Blood 3.9 g/dL (2.2-4.0); Glomerular Filtration Rate >60 (60-); Glucose, Blood 84 mg/dL (70-99); Potassium, Blood 3.4 mmol/L (3.5-5.5); Sodium, Blood 140 mmol/L (136-145); Total Protein, Blood 5.6 g/dL (6.4-8.2)
[2020-03-28 06:13] LABS: BASOPHILS PERCENT MAN 0 % (0-2); EOSINOPHILS ABSOLUTE MAN 0.04 K/mm3 (0.00-0.68); EOSINOPHILS PERCENT MAN 20 % (0-6); LYMPHOCYTES ABSOLUTE MAN 0.15 K/mm3 (0.84-5.20); LYMPHOCYTES PERCENT MAN 76 % (21-46); MONOCYTES PERCENT MAN 4 % (4-13); TOTAL CELLS COUNTED 25
[2020-03-28 06:54] LABS: SEG NEUTROPHILS PERCENT MAN 0 % (41-73)
--- NOTE | 2020-03-28 18:24 | NUR ---
SHIFT SUMMARY NO ACUTE CHANGES T/O SHIFT, A&OX4, PT SLEPT MOST OF THE DAY. SHE WOULD WAKE UP FOR MEALS AND MEDICATION ADMINISTRATION. DAUGHTER AND SON IN THE ROOM FOR MOST OF THE DAY. PT STATED SHE FELT SOME CHEST PAIN AFTER AMBULATING TO THE BATHROOM. PAIN SUBSIDED AFTER ABOUT 15 MINUTES. NIX ORDERED A TROPONIN LEVEL FOR FURTHER EVALUATION. PT ALSO RAN A SLIGHT FEVER TODAY, WAS TREATED PER EMAR WITH TYLENOL. FAMILY ASKED TO SPEAK WITH BLANCHE AT SOME POINT, BLANCHE WAS INFORMED AND IS IN ROOM CURRENTLY WITH PT, FAMILY, AND KIARRA FROM PALLIATIVE CARE. PT IS SALINE LOCKED AND STILL ON TELE.
--- NOTE | 2020-03-29 05:02 | NUR ---
SHIFT SUMMARY: PT IS ALERT AND ORIENTED BUT FAIRLY LETHARGIC. DAUGHTER AT THE BEDSIDE. EARLY IN THE NIGHT THE PT'S HR JUMPED UP TO 160 THEN TO 180 WHICH IT WAS SUSTAINING, I DECIDED TO CALL A ROUTE DRIVER COIN MACHINES. DURING THE ROUTE DRIVER COIN MACHINES IV CARDIZEM WAS GIVEN WELL PO METOPROLOL. THE HR CONTINUED TO AVERAGE 150-160. I CALLED AND RECEIVED AN ORDER FOR ANOTHER DOSE OF IV CARDIZEM WITH INSTRUCTIONS TO TRANSFER TO PCU IF NOT EFFECTIVE. THE SECOND DOSE OF CARDIZEM WORKED IN CONVERTING THE PATIENT OUT OF AFIB AND BACK TO SINUS RHYTHM. LATER IN THE SHIFT THE PATIENT CONVERTED BACK TO AFIB WITH A RATE AVERAGING BETWEEN 150-[address]. [address] GONZALEZ AND RECIEVED AN ORDER FOR 5 MG OF IV LOPRESSOR WITH A SECOND DOSE IF THE HR REMAINED ABOVE 110 A HALF AN HOUR AFTER GIVING THE FIRST DOSE. THE FIRST DOSE WAS EFFECTIVE IN CONVERTING THE PATIENT BACK TO SINUS RHYTHM WITH A RATE IN THE 80'S. DAUGHTER REMAINS AT THE BEDSIDE. BED IN LOW POSITION, CALL LIGHT WITHIN REACH. WILL CONTINUE TO MONITOR.
--- NOTE | 2020-03-29 12:21 | NUR ---
PT IS SLEEPING, FAMILY IN THE ROOM PROVIDING CARE, WISH TO HAVE MINIMAL INTERRUPTIONS AT THIS TIME.
--- NOTE | 2020-03-29 13:18 | NUR ---
called to see pt for rapid response. pt placed on comfort care and telemetry removed. pt wants to go home and family is accepting of the plan. They have a supportive family and a plan until hospice gets there on monday. They have a bed but will need a hospital bed. They have a medically trained family nurse and understand the medications. review of plan with physician and care aid. dr ponce notified.
--- NOTE | 2020-03-29 14:24 | NUR ---
RAPID RESPONSE SUMMARY AT APPROX 0915 TELE ASSISTANT PROFESSOR OF PSYCHOLOGY CALLED AND REPORTED PT CONVERTED INTO AFIB WITH A PULSE RATE OF 140-160'S. BP 101/58. BLANCHE WAS INFORMED AND ORDERED IV DILTIAZEM, DILTIAZEM AND HER MORNING METOPROLOL CR WERE PROVIDED. PT DID NOT CONVERT BACK AFTER ADMINISTRATION AND WAS REPORTING PRESSURE/PAIN IN HER CHEST. REASSESSED BP AND IT WAS 80/57. AT THIS TIME WE DECIDED TO CALL THE BUDGET MANAGER. BLANCHE WAS PRESENT AT THIS TIME. PT WAS ALERT AND ORIENTED, RESPONDING APPROPRIATELY. EKG PERFORMED AND CONFIRMED AFIB IN THE 150'S. NO MEDICATIONS WERE PROVIDED DURING RAPID RESPONSE AND BP BEGAN TO STABALIZE. BLANCHE DISCUSSED WITH FAMILY AT THIS TIME AND THEY DECIDED TO PLACE THE PT ON COMFORT CARE. TELE AND MOST MEDICATIONS WERE DC'D AT THIS TIME.
[2020-03-29] MEDS ORDERED: ACET120S PR (14:31)
[2020-03-29] MEDS ORDERED: Ativan1 MG PO (14:35)
[2020-03-29] MEDS ORDERED: MORP20L SL (14:38)
[2020-03-29] MEDS ORDERED: LIDO700A20 TOP (14:39)
[2020-03-29] MEDS ORDERED: ONDA4ODT MM (14:40)
[2020-03-29] MEDS ORDERED: PROM12.5S PR (14:41)
[2020-03-29] MEDS ORDERED: TRANSDERM-SCOP1 EAC1 TD (14:42)
--- NOTE | 2020-03-29 14:57 | NUR ---
PT REPORTS PAIN IN THE RIGHT LEG, LIDOCAINE PATCH PLACED BY HIP WHERE PAIN IS LOCATED. FAMILY OF PT REPORTS SHE IS FEVERISH, TEMP WAS 98.1, SO NO ACTION WAS TAKEN. FAMILY IS AT BEDSIDE AND WANTS MINIMAL INTERRUPTIONS.
--- NOTE | 2020-03-29 16:01 | NUR ---
PT DC'D AT APPROX 1530 VIA GURNEY BY EMS. PT WAS ACCOMPANIED BY SON AND DAUGHTER AT THE TIME OF DC. IV WAS REMOVED AND LOOKED WNL WITH NO SIGN OF INFECTION. DC PACKET WAS DISCUSSED WITH SON AND DAUGHTER.
[2020-04-03 09:01] LABS: Result SEE LABOUT RESULTS
== END 2020-03-29 15:42 | disposition hospice, home (50) | DRG 809 ==
LOC: ER 08:08 → PCU 11:06 → MEDS 03-16 11:18 → PCU 03-22 13:49 → MEDS 03-27 10:49
PROVIDERS: Emergency Medicine; Internal Medicine; Internal Medicine Hematology & Oncology; ADMIT Internal Medicine
PROC: 30233N1 Transfusion of Nonautologous Red Blood Cells into Peripheral Vein, Percutaneous Approach (ICD-10-PCS; principal; 2020-03-17)
DX: D70.8 Other neutropenia (principal); R65.10 Systemic inflammatory response syndrome (SIRS) of non-infectious origin without acute organ dysfunction; K57.20 Diverticulitis of large intestine with perforation and abscess without bleeding; M35.9 Systemic involvement of connective tissue, unspecified; R50.81 Fever presenting with conditions classified elsewhere; D61.818 Other pancytopenia; Z20.828 Contact with and (suspected) exposure to other viral communicable diseases; D50.9 Iron deficiency anemia, unspecified; D63.8 Anemia in other chronic diseases classified elsewhere; I10 Essential (primary) hypertension; D69.6 Thrombocytopenia, unspecified; K52.9 Noninfective gastroenteritis and colitis, unspecified; I48.0 Paroxysmal atrial fibrillation; E03.9 Hypothyroidism, unspecified; I25.10 Atherosclerotic heart disease of native coronary artery without angina pectoris; E87.6 Hypokalemia; M31.6 Other giant cell arteritis; Z51.5 Encounter for palliative care; Z66 Do not resuscitate; Z95.5 Presence of coronary angioplasty implant and graft; Z88.5 Allergy status to narcotic agent; Z90.49 Acquired absence of other specified parts of digestive tract; Z86.718 Personal history of other venous thrombosis and embolism; Z87.11 Personal history of peptic ulcer disease; Z79.01 Long term (current) use of anticoagulants; Z79.52 Long term (current) use of systemic steroids; Z79.899 Other long term (current) drug therapy
CPT/HCPCS: 36415; 36430; 71045; 74177; 80048; 80053; 81001; 82607; 82728; 82746; 83540; 83550; 83605; 83735; 83880; 84132; 84443; 84484; 85014; 85018; 85025; 85651; 86850; 86900; 86901; 86923; 87040; 87086; 87493; 88184; 88185; 93005; 93010; 93308; 93321; 96365; 96366; 96368; 96375; 97110; 97162; 97165; 97530; 97535; 99285-25; A9270; A9270-GY; J0694; J0696; J1568; J1720; J1940; J2270; J2543; J2920; J3370; J3475; J3480; J7030; J7050; J7512; J8610; P9016; P9046; P9612; Q9967; U0003